=== PATIENT | female | born 1930 | race Caucasian/White ===

== ENCOUNTER → 2018-02-22 | Outpatient (CLI) | payer MEDICARE, BC ==
--- NOTE | 2018-02-22 14:49 | US ---
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 EXAM MEASUREMENTS: RIGHT: Peak Systolic Velocity (PSV) cm/sec ----- Right CCA: 56.6 ----- Right ICA: 55.5 ----- Right ECA: 62.1 ICA/CCA ratio: 1.0 RIGHT: End Diastole cm/sec ----- Right CCA: 8.6 ----- Right ICA: 9.9 ----- Right ECA: 0.0 LEFT: Peak Systolic Velocity (PSV) cm/sec ----- Left CCA: 57.2 ----- Left ICA: 70.6 ----- Left ECA: 59.5 ICA/CCA ratio: 1.2 LEFT: End Diastole cm/sec ----- Left CCA: 11.0 ----- Left ICA: 18.5 ----- Left ECA: 5.6 VERTEBRALS (direction of flow): Right Vertebral: Antegrade Left Vertebral: Antegrade Rhythm: Normal No significant velocity elevations, mild plaque. IMPRESSION: Mild degree of grayscale atheromatous plaquing with no sonographically evident hemodynam ically significant stenosis within either visualized carotid arterial system.
--- NOTE | 2018-02-23 09:18 | ECHOF ---
Referral Reason:I65.23 Occlusion and stenosis, carotid arteries MEASUREMENTS -------- HEIGHT: 162.6 cm WEIGHT: 65.8 kg BP: 199/84 RVIDd: 2.8 cm (< 3.3) IVSd: 1.0 cm (0.6 - 1.1) LVIDd: 4.2 cm (3.9 - 5.3) LVPWd: 1.1 cm (0.6 - 1.1) IVSs: 1.3 cm LVIDs: 2.8 cm LVPWs: 1.6 cm LA Diam: 3.3 cm (2.7 - 3.8) LAESV Index (A-L): 25.49 ml/m Ao Diam: 2.6 cm (2.0 - 3.7) AV Cusp: 1.7 cm (1.5 - 2.6) EPSS: 0.4 cm MV E George: 0.76 m/s MV DecT: 167 ms MV A George: 0.93 m/s MV E/A Ratio: 0.81 MV EF SLOPE: 87.19 mm/s (70 - 150) MV EXCURSION: 1.41 cm (> 18.000) FINDINGS -------- Sinus rhythm. This was a technically adequate study. The left ventricular size is normal. Left ventricular wall thickness is normal. Overall left vent ricular systolic function is normal with, an EF between 55 - 60 %. The right ventricle is normal in size. Normal LA size by volume 22+/-6 ml/m2. The right atrium is normal in size. There is mild aortic valve sclerosis. There is mild aortic regurgitation. The mitral valve leaflets are mildly thickened. Mild mitral annular calcification present. Mild m itral regurgitation is present. Trace tricuspid regurgitation present. Moderate pulmonic regurgitation. The aortic root size is normal. Normal inferior vena cava with normal inspiratory collapse consistent with estimated right atrial pre ssure of 5 mmHg. There is no pericardial effusion. CONCLUSIONS -------- 1. Sinus rhythm. 2. This was a technically adequate study. 3. The left ventricular size is normal. 4. Left ventricular wall thickness is normal. 5. Overall left ventricular systolic function is normal with, an EF between 55 - 60 %. 6. The right ventricle is normal in size. 7. Normal LA size by volume 22+/-6 ml/m2. 8. The right atrium is normal in size. 9. There is mild aortic valve sclerosis. 10. There is mild aortic regurgitation. 11. The mitral valve leaflets are mildly thickened. 12. Mild mitral annular calcification present. 13. Mild mitral regurgitation is present. 14. Trace tricuspid regurgitation present. 15. Moderate pulmonic regurgitation. 16. The aortic root size is normal. 17. Normal inferior vena cava with normal inspiratory collapse consistent with estimated right atrial pressure of 5 mmHg. 18. There is no pericardial effusion. OCCUPATIONAL MEDICINE PHYSICIAN: NORAH Sampson
== END | disposition home or self-care (01) ==
LOC: RADECHMAIN 12:54
PROVIDERS: ATTEND Internal Medicine
DX: I65.23 Occlusion and stenosis of bilateral carotid arteries (principal); I37.1 Nonrheumatic pulmonary valve insufficiency
CPT/HCPCS: 93306; 93880

== ENCOUNTER → 2019-01-09 | Outpatient (CLI) | payer MEDICARE, BC ==
--- NOTE | 2019-01-09 11:54 | CT ---
EXAMINATION TYPE: CT abdomen pelvis w con DATE OF EXAM: 01/09/2019 COMPARISON: none HISTORY: Weight loss CT DLP: 541 mGycm Automated exposure control for dose reduction was used. CONTRAST: CT scan of the abdomen pelvis is performed with IV Contrast, patient injected with 80 mL of Isovue 30 0. FINDINGS- LUNG BASES-pleural calcification and thickening noted and there is interstitial interlobular septal t hickening compatible chronic interstitial lung disease. Heart is large and there is coronary artery c alcification.. LIVER/GB- No gross abnormality is appreciated. PANCREAS- No gross abnormality is seen. SPLEEN- No gross abnormality is seen. ADRENALS- No gross abnormality is seen. KIDNEYS/BLADDER-bilateral parapelvic renal cysts. There is a 1.4 cm hypodense mid pole left renal les ion measuring 30 Hounsfield units which does not meet the criteria of simple cyst. This could be betina elated with ultrasound.. BOWEL- no bowel dilatation. Normal appendix. LYMPH NODES- No greater than 1cm abdominal or pelvic lymph nodes areappreciated. OSSEOUS STRUCTURES-hypertrophic and degenerative change of the spine.. OTHER- 1.3 cm adnexal soft tissue density may represent residual ovary or ovarian cyst. No free flui d. No free air. Uterus atrophic. Aorta is ectatic with irregular soft and calcified atherosclerotic c hanges. Calcified uterine fibroid involving the uterus. IMPRESSION- 1. Chronic interstitial lung disease involving the lung bases with cardiomegaly and dense coronary ar samuel calcification. 2. No definite acute intra-abdominal process. There is a indeterminate left renal lesion measuring 30 Hounsfield units which does not meet the criteria of a simple cyst. Ultrasound suggested. 3. There is a 1.3 cm left adnexal lesion which is somewhat atypical given the patient's demographics and in the abnormal finding in a postmenopausal female should be correlated with pelvic ultrasound.
== END | disposition home or self-care (01) ==
LOC: RADCTMAIN 08:58
PROVIDERS: ATTEND Internal Medicine
DX: N28.9 Disorder of kidney and ureter, unspecified (principal); N85.9 Noninflammatory disorder of uterus, unspecified
CPT/HCPCS: 74177; Q9967 ×2

== ENCOUNTER → 2019-01-20 | Outpatient (CLI) | payer MEDICARE, BC ==
--- NOTE | 2019-01-20 14:11 | US ---
EXAMINATION TYPE: US kidneys/renal and bladder DATE OF EXAM: 01/20/2019 COMPARISON: CT dated 01/09/2019 CLINICAL HISTORY: Q61.8 CYSTIC RENAL DISEASE. EXAM MEASUREMENTS: Right Kidney: 9.7 x 6.0 x 4.9 cm Left Kidney: 9.8 x 5.5 x 4.8 cm Post Void Residual Volume: 32.1 mL Right Kidney: multiple parapelvic cysts vs. less likely mild hydronephrosis with appearance of dilate d renal pelvis at 1.3cm A/P. Left Kidney: inferior pole cortical cyst = 1.8 x 1.6 x 1.4cm; possible multiple parapelvic cysts vs. less likely mild hydronephrosis Bladder: wnl Bilateral Jets seen: yes Normal Post Void Residual: yes There is bilateral mild cortical renal thinning indicative of underlying medical renal disease. Findi ngs are greater on the right than left. IMPRESSION: 1. Bilateral hydronephrosis is difficult to exclude on ultrasound however findings likely relate to t he numerous renal sinus cysts as seen on the prior CT of 01/09/2019 rather than hydronephrosis. 2. Benign-appearing left lower pole cortical renal cyst.
--- NOTE | 2019-01-20 14:14 | US ---
EXAMINATION TYPE: US pelvic complete DATE OF EXAM: 01/20/2019 COMPARISON: CT CLINICAL HISTORY: Q61.8 CYSTIC RENAL DISEASE; uterine fibroid and adnexal mass per CT TECHNIQUE: Transabdominal (TA). Transabdominal sonographic images of the pelvis were acquired. Date of LMP: NA EXAM MEASUREMENTS: Uterus: 6.0 x 4.2 x 2.9 cm Endometrial Stripe: 0.2 cm Right Ovary: 1.6 x 1.5 x 0.9 cm Left Ovary: 3.1 x 2.4 x 2.0 cm 1. Uterus: Anteverted; dystrophic calcification in right upper uterus likely relates to a degenerati ve uterine fibroid noted on the CT of 01/09/2019 measuring 1.4 x 1.8 x 1.3cm. 2. Endometrium: thickness is wnl post menopause 3. Right Ovary: wnl 4. Left Ovary: simple cyst noted = 2.3 x 1.5 x 1.8cm 5. Bilateral Adnexa: wnl 6. Posterior cul-de-sac: wnl IMPRESSION: 1. Intramural uterine dystrophic calcification likely on the basis of a degenerative uterine leiomyom a. 2. Simple appearing cyst measuring up to 2.3 cm on the left. For cysts of this size in a postmenopaus al female annual surveillance is recommended to confirm stability. Once 2 years of stability has been confirmed the patient/physician may opt to decrease the frequency of surveillance.
== END | disposition home or self-care (01) ==
LOC: RADUSWWP 12:49
PROVIDERS: ATTEND Internal Medicine
DX: N28.1 Cyst of kidney, acquired (principal); N85.8 Other specified noninflammatory disorders of uterus; N83.202 Unspecified ovarian cyst, left side
CPT/HCPCS: 76770; 76856

== ENCOUNTER 2019-08-19 07:03 | Inpatient (IN) | payer MEDICARE, BC ==
[2019-08-19] MEDS ORDERED: HEPARIN SODIUM,PORCINE 5,000 UNIT/ML 1 ML VIAL IV PRN (09:40)
[2019-08-19] MEDS: HEPARIN SOD,PORK IN 0.45% NACL 25,000 UNIT in 0.45% NACL 1 250ML.BAG IV SCH (09:45)
[2019-08-19] MEDS ORDERED: IV FLUID CONTINUATION 1,000 ML IV ONE (10:53)
[2019-08-19] MEDS ORDERED: LIDOCAINE 1% INJ 10MG/ML (20 ML MDV) ONE (11:06)
[2019-08-19] MEDS ORDERED: VERAPAMIL 2.5 MG/ML 2 ML AMP ONE (11:06)
[2019-08-19] MEDS ORDERED: MIDAZOLAM 2 MG/2 ML VIAL IV ONE (11:20)
[2019-08-19] MEDS ORDERED: LIDOCAINE 1% INJ 10MG/ML (20 ML MDV) SQ ONE (11:21)
[2019-08-19] MEDS ORDERED: TICAGRELOR 90 MG TAB ONE (11:31)
[2019-08-19] MEDS ORDERED: BIVALIRUDIN BOLUS 250 MG/50 ML IV ONE (11:36)
[2019-08-19] MEDS ORDERED: BIVALIRUDIN 250 MG in SODIUM CHLORIDE 0.9% 50 ML IV ONE (11:37)
[2019-08-19] MEDS ORDERED: TICAGRELOR 90 MG TAB PO ONE (11:40)
[2019-08-19] MEDS ORDERED: NITROGLYCERIN 1000MCG/10ML SYRINGE INTRACORON ONE (11:43)
[2019-08-19] MEDS ORDERED: niCARdipine Syringe (1,000 mcg/10 mL) INTRACORON ONE (11:43)
[2019-08-19] MEDS: NITROGLYCERIN 1000MCG/10ML SYRINGE INTRACORON ONE ×2 (11:47→11:52)
[2019-08-19] MEDS ORDERED: IOPAMIDOL-370 125ML BTL INJ ONE (12:06)
[2019-08-19] MEDS ORDERED: HEPARIN SODIUM 1,000 UN/ML (10ML VL) ONE (12:11)
[2019-08-19] MEDS ORDERED: MAG HYDROX/AL HYDROX/SIMETH 30 ML CUP PO PRN (12:35)
[2019-08-19] MEDS ORDERED: RX INFO: IV CONTRAST WAS GIVEN 1 EACH MISC MISCELLANE PRN (12:35)
[2019-08-19] MEDS ORDERED: ATROPINE SULFATE 0.1 MG/ML 10ML SYRINGE IV PRN (12:35)
[2019-08-19] MEDS ORDERED: ZOLPIDEM 5 MG TAB PO PRN (12:35)
[2019-08-19] MEDS ORDERED: NITROGLYCERIN SL TABS 0.4 MG TAB SUBLINGUAL PRN (12:35)
[2019-08-19] MEDS ORDERED: SODIUM CHLORIDE 0.9% 1,000 ML IV SCH (12:45)
--- NOTE | 2019-08-19 13:31 | CC ---
CARDIAC CATHETERIZATION REPORT DATE OF SERVICE: August 19, 2019. PERFORMING PHYSICIAN: Fransisco Hsu MD. PROCEDURE PERFORMED: 1. Selective right and left coronary angiogram. 2. Left heart catheterization. 3. Successful stenting of the proximal left anterior descending artery using 3.25 x 33 mm Xience JOHN with an excellent angiographic result and reduction of stenosis from 99% to 0%. 4. Successful stenting of the proximal right coronary artery using 3.0 x 18 mm Xience JOHN with an excellent angiographic result and reduction of stenosis from 80% to 0%. INDICATION: This is a pleasant 89-year-old female patient with hypertension and dyslipidemia who is in great physical shape for her age, presented to the [facility] with chest discomfort. The first set of troponin came into be unremarkable but subsequently the second set came in to be abnormal. The EKG showed nonspecific ST and T-wave abnormalities. Because of that and because she continues to have mild ongoing chest discomfort, I decided to pursue with a heart catheterization. APPROACH: Right common femoral artery. COMPLICATION: None. LEVEL OF SEDATION: Moderate with sedation length of 50 minutes. PROCEDURE DESCRIPTION: After obtaining informed consent, the patient was brought to the cardiac open hearth furnace laborer. The right common femoral artery was cannulated using micropuncture technique, the micropuncture wire passed easily then I placed a 6-Persian sheath 11 cm in the right groin. I did selective right and left coronary angiogram using JR4 and JL4 catheters. Left heart catheterization was performed using 6-Persian pigtail catheter. After that I did intervene on the LAD and RCA, please see a separate paragraph for that. SELECTIVE CORONARY ANGIOGRAM: 1. The right coronary artery is a large caliber vessel. It is a dominant vessel. The proximal to mid RCA appeared to have a lesion in the range of 80%. The RCA distally appeared to be normal and bifurcates into PDA and PLV branches, both appeared to be angiographically normal. 2. The left main is angiographically normal. It bifurcates into LCX and LAD. 3. The LCX is a large caliber vessel. It is a nondominant vessel. It is angiographically normal. In the midportion, it gives rise into OM1 which is a large caliber vessel and OM2 which is a small caliber vessel. They both appear to be angiographically normal. 4. The LAD is a large caliber vessel. The proximal LAD has a long tubular lesion up to about 99% by the bifurcation of the large septal skip hoist engineer branch. There was also sluggish flow in the LAD. The mid LAD and distal LAD appeared to be angiographically normal. HEMODYNAMICS: The LVEDP was 20 mmHg without significant gradient across the aortic valve. PCI OF THE LAD AND RCA: Anticoagulation was initiated using Angiomax. Subsequently I did engage the left main using JL3.5 guide. I did wire it using a long whisper J wire. The wire was advanced to the distal LAD. After that I did balloon angioplasty using 2.5 x 15 mm balloon before I deployed 3.25 x 33 mm Xience JOHN where the stent was positioned under fluoroscopy guidance and deployed under 12 atmospheres for 20 seconds. The following angiogram showed excellent angiographic results without any complication with JEN-3 flow in the LAD. For the right coronary artery, I did engage the right coronary artery using JR3.5 guide. I did wire it using the same whisper wire I used for the LAD. After that I did balloon angioplasty using the same 2.5 x 15 mm balloon before I deployed a 3.0 x 18 mm another Xience JOHN where the stent was positioned under fluoroscopy guidance and deployed under its nominal pressure. After that I did post dilate the stent using 3.25 noncompliant balloon. The final angiogram showed excellent angiographic results and the procedure was completed without any complication. CONCLUSION: 1. Acute [id number] myocardial infarction in this 89-year-old female patient with hypertension and dyslipidemia. 2. Critical disease involving the proximal left anterior descending artery with JEN-3 flow in the LAD. 3. Severe disease involving the proximal right coronary artery. 4. Successful stenting of both the LAD and RCA with an excellent angiographic results and without any complication with JEN-3 flow by the end. 5. Elevated left ventricular end-diastolic pressure. POSTPROCEDURE MANAGEMENT: 1. Dual antiplatelet therapy. 2. Risk factors modifications. 3. Obtain an echocardiogram with Doppler to establish LV function. 4. Start the patient on high intensity statin along with beta faustino along with Aldactone. 5. Follow up with the patient. MMODL / IJN: [id number] /
--- NOTE | 2019-08-19 13:37 | LTR ---
August 19, 2019 Re: Oralia Watts Dear Dr. Helms: Ms. Oralia Watts presented initially to [facility] with chest discomfort and ruled in for acute [id number] myocardial infarction. I did perform a heart catheterization on her and that revealed severe 2 vessels coronary artery disease involving the LAD and RCA. Ms. Watts underwent successful stenting of both arteries. I want to thank you for allowing us to participate in her care and please do not hesitate to call if you have any question or concern. Sincerely, MD CHRISTINA Sanchez / BELÉN: [id number] /
--- NOTE | 2019-08-19 17:41 | P.HPIM ---
History of Present Illness H&P Date: 08/19/19 Chief Complaint: Chest pain This is an 89-year-old female patient of Dr. Dr. Helms with past medical history of hypertension, hyperlipidemia, hypothyroidism, glaucoma, generalized osteoarthritis, patient initially presented to [facility] with chest pain midsternal to the left. She had elevated troponins and EKG showed nonspecific ST and T-wave abnormalities. Patient was ruled in for non-ST elevated myocardial infarction and transferred to [facility] directly to the heart cath and found to have critical disease involving the proximal LAD, severe disease in the proximal RCA and underwent successful stenting of both the LAD and RCA. Plan is for dual antiplatelet therapy, echocardiogram, statin and beta faustino and Aldactone. Patient has been admitted to the cardiac stepdown unit. She is currently chest pain-free. Review of Systems Constitutional: Denies chills, Denies fatigue, Denies fever, Denies poor appetite, Denies weakness Eyes: denies blurred vision, denies pain Ears, nose, mouth and throat: Denies headache, Denies sore throat Cardiovascular: Reports chest pain, Denies dyspnea on exertion, Denies leg edema, Denies shortness of breath, Denies syncope Respiratory: Denies cough, Denies cough with sputum, Denies dyspnea, Denies excessive sputum, Denies hemoptysis, Denies home oxygen, Denies respiratory infections Gastrointestinal: Denies abdominal pain, Denies diarrhea, Denies loss of appetite, Denies nausea, Denies vomiting Genitourinary: Denies dysuria, Denies hematuria, Denies urgency, Denies urinary frequency Musculoskeletal: Denies muscle weakness, Denies myalgias Integumentary: Denies pruritus, Denies rash, Denies wounds Neurological: Denies change in mentation, Denies change in speech, Denies numbness, Denies weakness Psychiatric: Denies anxiety, Denies depression Endocrine: Denies fatigue, Denies weight change Past Medical History Past Medical History: Eye Disorder, Hyperlipidemia, Hypertension, Osteoarthritis (OA), Thyroid Disorder Additional Past Medical History / Comment(s): "borderline glaucoma", TIA History of Any Multi-Drug Resistant Organisms: None Reported Past Surgical History: Back Surgery, Orthopedic Surgery, Tubal Ligation Additional Past Surgical History / Comment(s): HEMORRHOIDECTOMY, DARRELL CATARACT, PAIN CLINIC PROCEDURES, RIGHT 5TH TOE SX, SINUS SURGERY, colonoscopy last year was normal. Past Anesthesia/Blood Transfusion Reactions: No Reported Reaction Additional Past Anesthesia/Blood Transfusion Reaction / Comment(s): . Past Psychological History: No Psychological Hx Reported Smoking Status: Never smoker Past Alcohol Use History: None Reported Past Drug Use History: None Reported - Past Family History Father Family Medical History: [place]ocardial Infarction ([place]) Additional Family Medical History / Comment(s): Father at age 59 from a myocardial infarction and he was an alcoholic. Brother(s) Family Medical History: CVA/TIA, [place]ocardial Infarction ([place]) Additional Family Medical History / Comment(s): Patient had 3 brothers, one from alcoholism, other from [place]. Sister(s) Family Medical History: No Reported History Additional Family Medical History / Comment(s): Patient had 2 sisters one of them from old age at 92. Son(s) Family Medical History: No Reported History Additional Family Medical History / Comment(s): Patient has 2 sons with no major medical problems. Daughter(s) Family Medical History: No Reported History Additional Family Medical History / Comment(s): Patient has one daughter with no major medical problems. Mother Family Medical History: CVA/TIA, Hypertension Additional Family Medical History / Comment(s): Mother at age 82 from CVA. Medications and Allergies Home Medications Medication Instructions Recorded Confirmed Type amLODIPine [Norvasc] 7.5 mg PO HS 01/30/14 08/19/19 History Aspirin 325 mg PO HS 11/18/15 08/19/19 History Cetirizine HCl [Zyrtec] 10 mg PO HS 11/18/15 08/19/19 History Levothyroxine Sodium [Synthroid] 25 mcg PO DAILY #14 tab 11/27/15 08/19/19 Rx Timolol 0.5% Ophth Soln [Timoptic 1 drop LEFT EYE BID 01/07/16 08/19/19 History 0.5% Ophth Soln] HYDROcodone/APAP 5-325MG [[place] 1 tab PO Q4HR PRN #30 tab NS 01/10/16 08/19/19 Rx 5-325] Losartan [Cozaar] 25 mg PO DAILY 08/19/19 08/19/19 History Multivitamins, Thera [Multivitamin 1 tab PO DAILY 08/19/19 08/19/19 History (formulary)] Allergies Allergy/AdvReac Type Severity Reaction Status Date / Time atorvastatin AdvReac pain and Verified 08/19/19 10:48 hair loss Izypduy-Lci-Sqb Reductase AdvReac severe Verified 08/19/19 10:48 Inhibitor pain and hair loss Physical Exam Vitals: Vital Signs Temp Pulse Resp BP Pulse Ox 08/19/19 13:20 62 18 131/67 97 08/19/19 13:05 59 L 18 130/72 98 08/19/19 12:50 97.3 F L 61 18 127/61 99 08/19/19 09:01 97.3 F L 59 L 17 124/56 99 Intake and Output 08/18/19 08/19/19 08/19/19 22:59 06:59 14:59 Intake Total 376 Balance 376 Intake: IV 376 Other: Weight 62.8 kg - Constitutional General appearance: average body habitus, no acute distress - EENT Eyes: Reports anicteric sclerae, Reports disc margins sharp, Reports PERRLA, Reports fundus normal, Reports normal apperance, Denies ptosis, Denies scleral icterus ENT: Reports hard of hearing, Reports normal oropharynx, Denies thrush Ears: bilateral: normal - Neck Neck: Reports normal ROM, Denies lymphadenopathy, Denies rigidity, Denies stridor, Denies thyromegaly Carotids: bilateral: upstroke normal Thyroid: bilateral: normal size - Respiratory Respiratory: bilateral: diminished, negative: dullness, rales, rhonchi, wheezing, prolonged expiration, prolonged inspiration - Cardiovascular Rhythm: regular Heart sounds: normal: S1, S2 Abnormal Heart Sounds: Reports systolic murmur - Gastrointestinal General gastrointestinal: Reports normal bowel sounds, Reports soft, Reports splenomegaly, Denies tenderness, Denies umbilical hernia - Integumentary Integumentary: Denies cyanotic, Denies decreased turgor, Denies jaundiced, Denies rash - Neurologic Neurologic: CNII-XII intact - Psychiatric Psychiatric: Reports A&O x's 3, Reports appropriate affect Thrombosis Risk Factor Assmnt - Choose All That Apply Any of the Below Risk Factors Present?: Yes Other Risk Factors: Yes Each Risk Factor Represents 3 Points: Age 75 years or older Thrombosis Risk Factor Assessment Total Risk Factor Score: 3 Thrombosis Risk Factor Assessment Level: Moderate Risk Assessment and Plan Plan: 1. Acute non-ST elevated myocardial infarction status post heart catheterization and stenting of the proximal LAD and proximal RCA. Continue aspirin 81 mg daily, Lipitor 80 mg at bedtime, Lopressor 25 mg twice daily, [place] to 90 mg twice daily, Aldactone 25 mg daily 2. Hypertension and hypertensive cardiovascular disease. Continue lisinopril 2.5 mg daily, Lopressor 25 mg twice daily, Aldactone 25 mg daily. 3. ALLERGIC rhinitis. 4. Hypothyroidism. Continue Synthroid 25 g orally once every day. 5. Hyperlipidemia. Continue Lipitor. 6. Osteoarthritis, generalized. Clinically stable. 7. History of TIA. Resolved. Discharge plan: Home Patient admitted to the hospital for a minimum of 2 night stay. Impression and plan of care have been directed as dictated by the signing physician. Monica Greenwood nurse practitioner acting as scribe for signing physician.
[2019-08-19] MEDS: TICAGRELOR 90 MG TAB PO SCH (20:42)
[2019-08-19] MEDS: METOPROLOL TARTRATE 25 MG TAB PO SCH (20:42)
[2019-08-19] MEDS ORDERED: ATORVASTATIN 80 MG TAB PO SCH (21:00)
[2019-08-20 06:15] LABS: Basophils # (A) 0.1 k/uL (0-0.2); Basophils % (A) 1 %; Eosinophils # (A) 0.1 k/uL (0-0.7); Eosinophils % (A) 1 %; HCT 41.7 % (34.0-46.0); HGB 13.9 gm/dL (11.4-16.0); Lymphocytes # (A) 1.5 k/uL (1.0-4.8); Lymphocytes % (A) 14 %; MCH 29.4 pg (25.0-35.0); MCHC 33.3 g/dL (31.0-37.0); MCV 88.4 fL (80.0-100.0); Mean Platelet Volume 7.6; Monocytes # (A) 0.5 k/uL (0-1.0); Monocytes % (A) 5 %; Neutrophils # (A) 8.1 k/uL (1.3-7.7); Neutrophils % (A) 78 %; Platelet Count 259 k/uL (150-450); RBC 4.72 m/uL (3.80-5.40); RDW 13.2 % (11.5-15.5); WBC 10.5 k/uL (3.8-10.6)
[2019-08-20] MEDS: LEVOTHYROXINE 25 MCG TAB PO SCH (06:23)
[2019-08-20] MEDS ORDERED: CLOPIDOGREL 75 MG TAB PO STA (10:11)
--- NOTE | 2019-08-20 10:57 | P.PN ---
Subjective Progress Note Date: 08/20/19 Principal diagnosis: Chest pain Patient continued to be hemodynamic a stable overnight no major events reported by nursing staff patient's is alert awake and oriented denying chest pain shortness breath nausea vomiting dumping dizziness lightheadedness or blurry vision. Patient is tolerating diet and ambulating in the room when her own Objective - Vital Signs Vital signs: Vital Signs Temp 98.2 F 08/20/19 08:00 Pulse 74 08/20/19 08:00 Resp 20 08/20/19 08:00 BP 106/65 08/20/19 08:00 Pulse Ox 96 08/20/19 08:00 Intake & Output 08/19/19 08/20/19 08/20/19 18:59 06:59 18:59 Intake Total 376 1000 120 Balance 376 1000 120 Weight 62.8 kg 62.7 kg Intake: IV 376 Intake, IV Titration 1000 Amount Sodium Chloride 0.9% 1, 1000 000 ml @ 75 mls/hr IV . [id number] COLIN Rx#:[id number] Oral 120 Other: Voiding Method Toilet # Voids 1 1 - Exam Gen.: in stated age, no acute distress Heart: Normal S1-S2 Lungs: Clear to auscultation bilaterally Abdomen: Soft, no tenderness, positive bowel sounds in all 4 quadrant no guarding or rebound Skin: No new rash Psych: Alert and oriented 3 Neuro: No focal deficit - Labs CBC & Chem 7: 08/20/19 06:00 08/20/19 06:00 Labs: Abnormal Lab Results - Last 24 Hours (Table) 08/20/19 Range/Units 06:00 Neutrophils # 8.1 H (1.3-7.7) k/uL Assessment and Plan Assessment: 1. Non-ST elevation MN status post cardiac catheterization with drug-eluting stent to the LAD. 2. Hypertension. 3. Hyperlipidemia. 4. Hypothyroidism. 5. Osteoarthritis. Plan discussed with cardiology to continue monitoring the patient's over the next 24 hours continue evidence-based medicine and continue monitoring vital signs closely would consider discharge in the morning based on clinical progress
--- NOTE | 2019-08-20 11:21 | P.PN ---
Subjective Progress Note Date: 08/20/19 This is an 89-year-old female patient of Dr. Dr. Helms with past medical history of hypertension, hyperlipidemia, hypothyroidism, glaucoma, generalized osteoarthritis, patient initially presented to [facility] with chest pain midsternal to the left. She had elevated troponins and EKG showed nonspecific ST and T-wave abnormalities. Patient was ruled in for non-ST elevated myocardial infarction and transferred to [facility] directly to the heart cath and found to have critical disease involving the proximal LAD, severe disease in the proximal RCA and underwent successful stenting of both the LAD and RCA. Plan is for dual antiplatelet therapy, echocardiogram, statin and beta faustino and Aldactone. Patient has been admitted to the cardiac stepdown unit. She is currently chest pain-free. 08/20: Patient denies having any chest pain or shortness of breath today. She denies any lightheadedness or dizziness. Patient verbalizes that she is unable to afford Brilinta and because her is on Plavix and she knows that they can afford Plavix, she would like to be switched. Regarding statins, patient states that she has been on 2 previous statins and was unable to tolerate due to severe leg pain and she will not take iany statins. Hemoglobin 13.9, platelet count 259. Patient is agreeable to be monitored overnight and plan for discharge tomorrow. Physical exam: Gen: This is an 89-year-old female. Patient is resting in bed and appears to be comfortable and in no acute distress. Patient's is at the bedside. VS: Afebrile, heart rate 74, blood pressure 106/65, pulse ox 96% on room air HEENT: Head is atraumatic, normocephalic. Pupils equal, round. Sclerae is anicteric. NECK: Supple. No JVD. No lymphadenopathy. No thyromegaly. LUNGS: Clear to auscultation. No wheezes or rhonchi. No intercostal retractions. HEART: Regular rate and rhythm. Systolic murmur. ABDOMEN: Soft. Bowel sounds are present. No masses. No tenderness. EXTREMITIES: No pedal edema. No calf tenderness. NEUROLOGICAL: Patient is awake, alert and oriented x3. Cranial nerves 2 through 12 are grossly intact. Assessment: 1. Acute non-ST elevated myocardial infarction status post heart catheterization and stenting of the proximal LAD and proximal RCA. 2. Hypertension and hypertensive cardiovascular disease. 3. Hyperlipidemia 4. Hypothyroidism. Plan: Discontinue Brilinta and start Plavix with a loading dose of 600 mg today followed by 75 mg starting tomorrow Patient is intolerant of statins Continue aspirin 81 mg daily, Lopressor 25 mg twice daily, lisinopril 2.5 mg daily, Aldactone 25 mg daily Monitor patient overnight, increase activity Plan for discharge home tomorrow Further recommendations to follow based upon clinical course Nurse practitioner note has been reviewed, I agree with documented findings and plan of care. Patient was seen and examined. Objective - Vital Signs Vital signs: Vital Signs Temp 98.2 F 08/20/19 08:00 Pulse 74 08/20/19 08:00 Resp 20 08/20/19 08:00 BP 106/65 08/20/19 08:00 Pulse Ox 96 08/20/19 08:00 Intake & Output 08/19/19 08/20/19 08/20/19 18:59 06:59 18:59 Intake Total 376 1000 120 Balance 376 1000 120 Weight 62.8 kg 62.7 kg Intake: IV 376 Intake, IV Titration 1000 Amount Sodium Chloride 0.9% 1, 1000 000 ml @ 75 mls/hr IV . [id number] COLIN Rx#:[id number] Oral 120 Other: Voiding Method Toilet # Voids 1 1 - Labs CBC & Chem 7: 08/20/19 06:00 08/20/19 06:00 Labs: Abnormal Lab Results - Last 24 Hours (Table) 08/20/19 Range/Units 06:00 Neutrophils # 8.1 H (1.3-7.7) k/uL
[2019-08-20] MEDS: LISINOPRIL 2.5 MG TAB PO SCH (11:34)
[2019-08-20] MEDS: SPIRONOLACTONE 25 MG TAB PO SCH (11:34)
[2019-08-20] MEDS: METOPROLOL TARTRATE 25 MG TAB PO SCH ×2 (11:34→20:17)
[2019-08-20] MEDS: HEPARIN SOD,PORK IN 0.45% NACL 25,000 UNIT in 0.45% NACL 1 250ML.BAG IV SCH (11:35)
[2019-08-20] MEDS: ASPIRIN 81 MG PO SCH (11:35)
[2019-08-20] MEDS: TICAGRELOR 90 MG TAB PO SCH (11:38)
[2019-08-20 12:37] VITALS: BMI 23.7
--- NOTE | 2019-08-20 16:44 | ECHOF ---
Referral Reason:NSTEMI MEASUREMENTS -------- HEIGHT: 162.6 cm WEIGHT: 62.6 kg BP: RVIDd: 3.5 cm (< 3.3) IVSd: 1.2 cm (0.6 - 1.1) LVIDd: 4.3 cm (3.9 - 5.3) LVPWd: 0.9 cm (0.6 - 1.1) IVSs: 1.3 cm LVIDs: 3.0 cm LVPWs: 1.2 cm LA Diam: 3.7 cm (2.7 - 3.8) LAESV Index (A-L): 29.00 ml/m MV EXCURSION: 23.948 mm (> 18.000) MV EF SLOPE: 148 mm/s (70 - 150) EPSS: 0.2 cm MV E George: 0.57 m/s MV DecT: 101 ms MV A George: 0.63 m/s MV E/A Ratio: 0.91 RAP: 5.00 mmHg RVSP: 20.82 mmHg FINDINGS -------- Sinus rhythm. This was a techncally difficult study with suboptimal views, , Lumason utilized for enhancement of im ages. The left ventricular size is normal. Left ventricular wall thickness is normal. There is moderate global hypokinesis of LV . Overall left ventricular systolic function is moderate-severely impaire d with, an EF between 30 - 35 %. Apical septum LV wall motion is hypokinetic. Anterseptal Hypoki nesis Inferior Hypokinesis Septal Hypokinesis Anterior Hypokinesis The right ventricle is normal in size. The left atrium is mildly dilated. LA is midly dilated 29-33ml/m2. The right atrial size is normal. 5.0mg OF Lumason UTLIZED: 2 OR MORE WALL SEGMENTS NOT VISUALIZED. There is mild aortic valve sclerosis. There is no evidence of aortic regurgitation. Mild mitral annular calcification present. [id number] mitral regurgitation is present. Mild tricuspid regurgitation present. Right ventricular systolic pressure is normal at < 35 mmHg. There is no evidence of pulmonary hypertension. There is no pulmonic regurgitation present. The aortic root size is normal. There is no pericardial effusion. CONCLUSIONS -------- 1. Sinus rhythm. 2. This was a techncally difficult study with suboptimal views, , Lumason utilized for enhancement of images. 3. The left ventricular size is normal. 4. Left ventricular wall thickness is normal. 5. There is moderate global hypokinesis of LV . 6. Overall left ventricular systolic function is moderate-severely impaired with, an EF between 30 - 35 %. 7. Apical septum LV wall motion is hypokinetic. 8. Anterseptal Hypokinesis 9. Inferior Hypokinesis 10. Septal Hypokinesis 11. Anterior Hypokinesis 12. The right ventricle is normal in size. 13. The left atrium is mildly dilated. 14. LA is midly dilated 29-33ml/m2. 15. The right atrial size is normal. 16. 5.0mg OF Lumason UTLIZED: 2 OR MORE WALL SEGMENTS NOT VISUALIZED. 17. There is mild aortic valve sclerosis. 18. Mild mitral annular calcification present. 19. Ewfz-qy-bgsfhgis mitral regurgitation is present. 20. Mild tricuspid regurgitation present. 21. Right ventricular systolic pressure is normal at < 35 mmHg. 22. There is no evidence of pulmonary hypertension. 23. There is no pulmonic regurgitation present. 24. The aortic root size is normal. 25. There is no pericardial effusion. WRAPPER CASER: Yvonne Mcghee RDCS
[2019-08-21 05:59] LABS: Basophils % (A) 1 %; Eosinophils # (A) 0.1 k/uL (0-0.7); Eosinophils % (A) 1 %; HGB 13.4 gm/dL (11.4-16.0); Lymphocytes # (A) 1.9 k/uL (1.0-4.8); Lymphocytes % (A) 21 %; MCH 28.5 pg (25.0-35.0); MCV 89.1 fL (80.0-100.0); Mean Platelet Volume 7.5; Monocytes # (A) 0.6 k/uL (0-1.0); Monocytes % (A) 7 %; Neutrophils % (A) 68 %; Platelet Count 231 k/uL (150-450); RBC 4.71 m/uL (3.80-5.40); RDW 13.6 % (11.5-15.5); WBC 8.9 k/uL (3.8-10.6)
[2019-08-21] MEDS: LEVOTHYROXINE 25 MCG TAB PO SCH (06:50)
[2019-08-21] MEDS: ASPIRIN 81 MG PO SCH (08:34)
[2019-08-21] MEDS: SPIRONOLACTONE 25 MG TAB PO SCH (08:34)
[2019-08-21] MEDS: METOPROLOL TARTRATE 25 MG TAB PO SCH (08:34)
[2019-08-21] MEDS: LISINOPRIL 2.5 MG TAB PO SCH (08:34)
[2019-08-21] MEDS ORDERED: CLOPIDOGREL 75 MG TAB PO SCH (09:00)
[2019-08-21] MEDS ORDERED: EZETIMIBE 10 MG TAB PO SCH (09:15)
[2019-08-21 09:17] VITALS: RESP 18; TEMP 98
--- NOTE | 2019-08-21 11:34 | P.PN ---
Subjective Progress Note Date: 08/21/19 This is an 89-year-old female patient of Dr. Dr. Helms with past medical history of hypertension, hyperlipidemia, hypothyroidism, glaucoma, generalized osteoarthritis, patient initially presented to [facility] with chest pain midsternal to the left. She had elevated troponins and EKG showed nonspecific ST and T-wave abnormalities. Patient was ruled in for non-ST elevated myocardial infarction and transferred to [facility] directly to the heart cath and found to have critical disease involving the proximal LAD, severe disease in the proximal RCA and underwent successful stenting of both the LAD and RCA. An echocardiogram with Doppler study was performed which revealed an ejection fraction of 30-35%. Blood pressure this morning 104/50 with a heart rate in the 60s, 97% on room air. White blood cell count 8.9, hemoglobin 13.4, platelet count 231. Patient is currently on aspirin 81 mg daily, Lipitor 80 mg daily, Plavix 75 mg daily, we will add study at 10 mg daily to her medication regime as she is intolerant to statins. She is on lisinopril 2-1/2 mg daily as well as metoprolol 25 mg by mouth twice a day and Aldactone 25 mg daily. Patient denies any chest discomfort and her breathing is stable. She's been up ambulating in the hallway without any difficulty. Objective - Vital Signs Vital signs: Vital Signs Temp 98 F 08/21/19 08:00 Pulse 67 08/21/19 08:00 Resp 18 08/21/19 08:00 BP 104/52 08/21/19 08:00 Pulse Ox 97 08/21/19 08:00 Intake & Output 08/20/19 08/21/19 08/21/19 18:59 06:59 18:59 Intake Total 342 240 Balance 342 240 Weight 62.7 kg 62.8 kg Intake: Oral 342 240 Other: Voiding Method Toilet # Voids 2 1 - Exam HEENT: Head is atraumatic, normocephalic. Pupils equal, round. Sclerae is anicteric. NECK: Supple. No JVD. No lymphadenopathy. No thyromegaly. LUNGS: Clear to auscultation. No wheezes or rhonchi. No intercostal retractions. HEART: Regular rate and rhythm. Systolic murmur. ABDOMEN: Soft. Bowel sounds are present. No masses. No tenderness. EXTREMITIES: No pedal edema. No calf tenderness. NEUROLOGICAL: Patient is awake, alert and oriented x3. Cranial nerves 2 through 12 are grossly intact. - Labs CBC & Chem 7: 08/21/19 05:23 08/20/19 06:00 Assessment and Plan Plan: Assessment and plan 1. Acute non-ST elevated myocardial infarction status post heart cat heterization and stenting of the proximal LAD and proximal RCA. 2. Hypertension and hypertensive cardiovascular disease. 3. Hyperlipidemia 4. Hypothyroidism. 5. 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 Plan From cardiology's perspective, patient may be able to be discharged home today. We'll make her a follow-up appointment to see Dr. Hardin in the office post discharge. We will add study at 10 mg daily to her medication regime. DNP note has been reviewed, I agree with a documented findings and plan of care. Patient was seen and examined.
[2019-08-21 11:47] VITALS: BP 105/50; PULSE 52
--- NOTE | 2019-08-21 16:30 | P.DS ---
Providers Date of admission: 08/19/19 08:51 Attending physician: Jerson Smyth Consults: 08/19/19 09:44 Consult Physician Routine Consulting Provider: Fransisco Hsu Consult Reason/Comments: tx from [facility] for heart cath Do you want consulting provider notified?: Already Contacted Placement Type Exists?: Yes 08/19/19 12:35 Consult Physician Routine Consulting Provider: [facility] Consult Reason/Comments: Post Interventional patient Do you want consulting provider notified?: Already Contacted Primary care physician: Radha Helms [facility] Course: This is an 89-year-old female patient of Dr. Dr. Helms with past medical history of hypertension, hyperlipidemia, hypothyroidism, glaucoma, generalized osteoarthritis, patient initially presented to [facility] with chest pain midsternal to the left. She had elevated troponins and EKG showed nonspecific ST and T-wave abnormalities. Patient was ruled in for non-ST elevated myocardial infarction and transferred to [facility] directly to the heart cath and found to have critical disease involving the proximal LAD, severe disease in the proximal RCA and underwent successful stenting of both the LAD and RCA. Plan is for dual antiplatelet therapy, echocardiogram, statin and beta faustino and Aldactone. Patient has been admitted to the cardiac stepdown unit. She is currently chest pain-free. patient examined bedside is chest pain-free. Denies any shortness of breath palpitations nausea vomiting or GERD. Patient will be discharged today with new medication including metoprolol Lipitor Plavix and Aldactone with follow-up for Dr. Helms as outpatient - Constitutional General appearance: cooperative, no acute distress, obese - Respiratory Respiratory: bilateral: CTA, negative: diminished, dullness, rales, rhonchi - Cardiovascular Rhythm: regular Heart sounds: normal: S1, S2 Abnormal Heart Sounds: no systolic murmur, no diastolic murmur, no rub, no S3 Gallop, no S4 Gallop, no click, no other - Gastrointestinal General gastrointestinal: normal bowel sounds, soft - Musculoskeletal Musculoskeletal: gait normal, strength equal bilaterally Review of Systems Constitutional: Denies chills, Denies fatigue, Denies fever, Denies poor appetite, Denies weakness Eyes: denies blurred vision, denies pain Ears, nose, mouth and throat: Denies headache, Denies sore throat Cardiovascular: Reports chest pain, Denies dyspnea on exertion, Denies leg edema, Denies shortness of breath, Denies syncope Respiratory: Denies cough, Denies cough with sputum, Denies dyspnea, Denies excessive sputum, Denies hemoptysis, Denies home oxygen, Denies respiratory infections Gastrointestinal: Denies abdominal pain, Denies diarrhea, Denies loss of appetite, Denies nausea, Denies vomiting Genitourinary: Denies dysuria, Denies hematuria, Denies urgency, Denies urinary frequency Musculoskeletal: Denies muscle weakness, Denies myalgias Integumentary: Denies pruritus, Denies rash, Denies wounds Neurological: Denies change in mentation, Denies change in speech, Denies numbness, Denies weakness Psychiatric: Denies anxiety, Denies depression Endocrine: Denies fatigue, Denies weight change Discharge diagnoses 1. Non-ST elevation MS status post cardiac catheterization with drug-eluting stent to the LAD and RCA . 2. Hypertension. 3. Hyperlipidemia. 4. Hypothyroidism. 5. Osteoarthritis. Disposition home with home care Plan - Discharge Summary Discharge Rx Participant: No New Discharge Prescriptions: New Spironolactone [Aldactone] 25 mg PO DAILY #30 tab Aspirin 81 mg PO DAILY #30 chew Atorvastatin [Lipitor] 80 mg PO HS #30 tab Metoprolol Tartrate [Lopressor] 25 mg PO BID #60 tab Nitroglycerin Sl Tabs [Nitrostat] 0.4 mg SUBLINGUAL Q5M PRN #25 tab PRN Reason: Chest Pain Clopidogrel [Plavix] 75 mg PO DAILY #30 tab Lisinopril [Zestril] 2.5 mg PO DAILY #30 tab Ezetimibe [Zetia] 10 mg PO DAILY #30 tab Continue Levothyroxine Sodium [Synthroid] 25 mcg PO DAILY #14 tab Timolol 0.5% Ophth Soln [Timoptic 0.5% Ophth Soln] 1 drop LEFT EYE BID Discontinued amLODIPine [Norvasc] 7.5 mg PO HS Aspirin 325 mg PO HS Losartan [Cozaar] 25 mg PO DAILY No Action Cetirizine HCl [Zyrtec] 10 mg PO HS HYDROcodone/APAP 5-325MG [[place] 5-325] 1 tab PO Q4HR PRN #30 tab NS PRN Reason: Pain Multivitamins, Thera [Multivitamin (formulary)] 1 tab PO DAILY Discharge Medication List Cetirizine HCl [Zyrtec] 10 mg PO HS 11/18/15 [History] Levothyroxine Sodium [Synthroid] 25 mcg PO DAILY #14 tab 11/27/15 [Rx] Timolol 0.5% Ophth Soln [Timoptic 0.5% Ophth Soln] 1 drop LEFT EYE BID 01/07/16 [History] HYDROcodone/APAP 5-325MG [[place] 5-325] 1 tab PO Q4HR PRN #30 tab NS 01/10/16 [Rx] Multivitamins, Thera [Multivitamin (formulary)] 1 tab PO DAILY 08/19/19 [History] Aspirin 81 mg PO DAILY #30 chew 08/21/19 [Rx] Atorvastatin [Lipitor] 80 mg PO HS #30 tab 08/21/19 [Rx] Clopidogrel [Plavix] 75 mg PO DAILY #30 tab 08/21/19 [Rx] Ezetimibe [Zetia] 10 mg PO DAILY #30 tab 08/21/19 [Rx] Lisinopril [Zestril] 2.5 mg PO DAILY #30 tab 08/21/19 [Rx] Metoprolol Tartrate [Lopressor] 25 mg PO BID #60 tab 08/21/19 [Rx] Nitroglycerin Sl Tabs [Nitrostat] 0.4 mg SUBLINGUAL Q5M PRN #25 tab 08/21/19 [Rx] Spironolactone [Aldactone] 25 mg PO DAILY #30 tab 08/21/19 [Rx] Follow up Appointment(s)/Referral(s): Radha Helms MD [Primary Care Provider] - 1 Week (Please call the office to schedule your appointment) Fransisco Hsu MD [STAFF PHYSICIAN] - 08/28/19 3:30 pm (Wednesday -bring in all ID and a list of your medications) Patient Instructions/Handouts: *Surgery [facility] - After Heart Catheterization - Pony Roll Finisher Instructions Activity/Diet/Wound Care/Special Instructions: CARDIAC CATH 1. Support your puncture site by applying firm, steady pressure whenever you cough, laugh, sneeze or bear down to have a bowel movement (2-day restriction). 2. Watch for any excessive bruising, active bleeding, a firm knot forming under your skin, extreme tenderness and signs of infection (redness, swelling, fever). 3. Shower daily, do not soak puncture in a tub bath, jacuzzi, pool, small etc. for 1 week. This is to prevent risk of infection. 4. Drink plenty of fluids the day of and day after your procedure to flush contrast dye out of your kidneys. 5. Take all medications as directed. Never stop any new medication without your physicians OK. 6. No driving for 2 days after procedure. 7. 10- pound weight lifting restriction for 1 week. 8. Low sodium/low fat diet. 9. Activity limited until follow up appointment with your special projects coordinator. In case of any problems, please call [facility] [place] @ [phone]. Discharge Disposition: HOME WITH HOME HEALTH SERVICES
== END 2019-08-21 14:07 | disposition home or self-care (01) | DRG 247 ==
LOC: 3SCARD 08:51
PROVIDERS: ADMIT Internal Medicine; ATTEND Internal Medicine
PROC: 4A023N7 Measurement of Cardiac Sampling and Pressure, Left Heart, Percutaneous Approach (ICD-10-PCS; principal; 2019-08-19 10:45)
PROC: 027135Z Dilation of Coronary Artery, Two Arteries with Two Drug-eluting Intraluminal Devices, Percutaneous Approach (ICD-10-PCS; principal; 2019-08-19 10:45)
DX: I21.4 Non-ST elevation (NSTEMI) myocardial infarction (principal); E03.9 Hypothyroidism, unspecified; E78.5 Hyperlipidemia, unspecified; I11.9 Hypertensive heart disease without heart failure; M19.90 Unspecified osteoarthritis, unspecified site; I25.5 Ischemic cardiomyopathy; J30.9 Allergic rhinitis, unspecified; Z79.890 Hormone replacement therapy; Z79.82 Long term (current) use of aspirin; Z82.3 Family history of stroke; Z82.49 Family history of ischemic heart disease and other diseases of the circulatory system; Z86.73 Personal history of transient ischemic attack (TIA), and cerebral infarction without residual deficits; Z79.899 Other long term (current) drug therapy; Z79.02 Long term (current) use of antithrombotics/antiplatelets; Z98.51 Tubal ligation status; Z98.42 Cataract extraction status, left eye; Z98.41 Cataract extraction status, right eye; Z98.890 Other specified postprocedural states; Z88.8 Allergy status to other drugs, medicaments and biological substances
CPT/HCPCS: 82565; 85025; 93306; 93458; C1874

== ENCOUNTER 2019-08-30 02:16 | Inpatient (IN) | payer MEDICARE, BC ==
[2019-08-30] MEDS ORDERED: NITROGLYCERIN SL TABS 0.4 MG TAB SUBLINGUAL STA (02:38)
[2019-08-30] MEDS ORDERED: MORPHINE SULFATE 4 MG/ML SYRINGE IV STA (02:38)
[2019-08-30] MEDS ORDERED: ONDANSETRON 4 MG/2 ML VIAL IVP STA (02:38)
[2019-08-30] MEDS ORDERED: ASPIRIN 81 MG PO STA (02:38)
[2019-08-30] MEDS ORDERED: SODIUM CHLORIDE 0.9% 1,000 ML IV STA (02:38)
--- NOTE | 2019-08-30 02:50 | ED ---
Chest Pain HPI - General Chief Complaint: Chest Pain Stated Complaint: Chest Pain Time Seen by Provider: 08/30/19 02:35 Source: patient, family Mode of arrival: wheelchair Limitations: no limitations - History of Present Illness Initial Comments: Oralia is an 89yo known history of coronary artery disease who underwent cardiac catheterization and stenting on August 19 and had stenting of the proximal LAD and proximal RCA. Patient was discharged home on Plavix and aspirin. Patient reports she's been compliant with her medication she is followed up in Dr. Hsu's office. Patient reports that around midnight she began experiencing pressure-like chest pain, she took aspirin and nitro which time she became lightheaded and diaphoretic. She then notified her family decided to call 911, she was evaluated by EMS but refused transport however her son arrived at the home and forced her to come the hospital for further evaluation. Upon arrival she reports she still having some pressure in her chest with associated nausea. - Related Data Home Medications Medication Instructions Recorded Confirmed Cetirizine HCl [Zyrtec] 10 mg PO HS 11/18/15 08/19/19 Timolol 0.5% Ophth Soln [Timoptic 1 drop LEFT EYE BID 01/07/16 08/19/19 0.5% Ophth Soln] Multivitamins, Thera [Multivitamin 1 tab PO DAILY 08/19/19 08/19/19 (formulary)] Previous Rx's Medication Instructions Recorded Levothyroxine Sodium [Synthroid] 25 mcg PO DAILY #14 tab 11/27/15 HYDROcodone/APAP 5-325MG [[place] 1 tab PO Q4HR PRN #30 tab NS 01/10/16 5-325] Aspirin 81 mg PO DAILY #30 chew 08/21/19 Atorvastatin [Lipitor] 80 mg PO HS #30 tab 08/21/19 Clopidogrel [Plavix] 75 mg PO DAILY #30 tab 08/21/19 Ezetimibe [Zetia] 10 mg PO DAILY #30 tab 08/21/19 Lisinopril [Zestril] 2.5 mg PO DAILY #30 tab 08/21/19 Metoprolol Tartrate [Lopressor] 25 mg PO BID #60 tab 08/21/19 Nitroglycerin Sl Tabs [Nitrostat] 0.4 mg SUBLINGUAL Q5M PRN #25 tab 08/21/19 Spironolactone [Aldactone] 25 mg PO DAILY #30 tab 08/21/19 Allergies Allergy/AdvReac Type Severity Reaction Status Date / Time atorvastatin AdvReac pain and Verified 08/30/19 02:26 hair loss Hvlkqpy-Jzk-Mol Reductase AdvReac severe Verified 08/30/19 02:26 Inhibitor pain and hair loss Review of Systems ROS Statement: Those systems with pertinent positive or pertinent negative responses have been documented in the HPI. ROS Other: All systems not noted in ROS Statement are negative. EKG Findings - EKG Comments: EKG Findings:: KG was obtained due to complaint of chest pain, EKG was obtained at 2:31 AM, rate is 64 rhythm is sinus with rightward axis, CA is 184, care is made 4, QTC is 462 there are no acute ST elevations but deep T-wave inversions in the anterior lateral leads concerning for ischemia. When compared to EKG obtained on August 19 this is significant worsening. Past Medical History Past Medical History: Coronary Artery Disease (CAD), Chest Pain / Angina, Eye Disorder, Hyperlipidemia, Hypertension, Myocardial Infarction (CT), Osteoarthritis (OA), Thyroid Disorder Additional Past Medical History / Comment(s): "borderline glaucoma", TIA History of Any Multi-Drug Resistant Organisms: None Reported Past Surgical History: Back Surgery, Heart Catheterization With Stent, Orthopedic Surgery, Tubal Ligation Additional Past Surgical History / Comment(s): HEMORRHOIDECTOMY, DARRELL CATARACT, PAIN CLINIC PROCEDURES, RIGHT 5TH TOE SX, SINUS SURGERY, colonoscopy last year was normal. heart cath with 2 stents 08/18/19 Past Anesthesia/Blood Transfusion Reactions: No Reported Reaction Additional Past Anesthesia/Blood Transfusion Reaction / Comment(s): . Past Psychological History: No Psychological Hx Reported Smoking Status: Never smoker Past Alcohol Use History: None Reported Past Drug Use History: None Reported - Past Family History Father Family Medical History: Myocardial Infarction (CT) Additional Family Medical History / Comment(s): Father at age 59 from a myocardial infarction and he was an alcoholic. Brother(s) Family Medical History: CVA/TIA, Myocardial Infarction (CT) Additional Family Medical History / Comment(s): Patient had 3 brothers, one from alcoholism, other from [place]. Sister(s) Family Medical History: No Reported History Additional Family Medical History / Comment(s): Patient had 2 sisters one of them from old age at 92. Son(s) Family Medical History: No Reported History Additional Family Medical History / Comment(s): Patient has 2 sons with no major medical problems. Daughter(s) Family Medical History: No Reported History Additional Family Medical History / Comment(s): Patient has one daughter with no major medical problems. Mother Family Medical History: CVA/TIA, Hypertension Additional Family Medical History / Comment(s): Mother at age 82 from CVA. General Exam - General Exam Comments Initial Comments: Physical Exam GENERAL: Patient is well-developed and well-nourished. Patient is nontoxic and well- hydrated and is in no distress. HENT: Normocephalic, Atraumatic. EYES: PERRL, EOMI PULMONARY: Unlabored respirations. No audible rales rhonchi or wheezing was noted. CARDIOVASCULAR: There is a regular rate and rhythm without any murmurs gallops or rubs. ABDOMEN: Soft and nontender with normal bowel sounds. SKIN: Skin is clear with no lesions or rashes and otherwise unremarkable. : Deferred NEUROLOGIC: Patient is alert and oriented x3. Moving all extremities spontaneously MUSCULOSKELETAL: Normal extremities with adequate strength and full range of motion. No lower extremity swelling or edema. No calf tenderness. PSYCHIATRIC: Normal psychiatric evaluation. Limitations: no limitations Course Vital Signs 08/30/19 08/30/19 08/30/19 02:22 03:00 03:31 Temperature 97.9 F Pulse Rate 61 68 63 Respiratory 18 16 16 Rate Blood Pressure 151/74 158/76 156/72 O2 Sat by Pulse 98 98 100 Oximetry 08/30/19 08/30/19 03:45 04:07 Temperature Pulse Rate 62 Respiratory 16 Rate Blood Pressure 149/69 145/78 O2 Sat by Pulse 100 Oximetry Chest Pain MDM - MDM EKG was brought to me by triage, EKG concerning for ischemia so the patient was immediately brought back to resuscitation next line upon evaluation patient has mild chest pressure with associated nausea, she's taken nitro at home with only minimal improvement in her symptoms For cardiac workup was initiated Patient care was discussed with Dr. 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 Upon reevaluation patient reports pressure in her chest is resolved after Nitropaste. She continues to decline heparin. Labs were obtained, initial troponin was not elevated. We will plan to admit the patient for unstable angina on heparin drip with cardiology on consult. Dr. Mora was updated on plan and agreeable. Care was discussed with the admitting physician Dr. Scott who agrees with plan for admission, heparin and consult cardiology. Critical Care Time Critical Care Time: Yes Total Critical Care Time: 30 Critical Care Time: Critical Care Time Critical care time was exclusive of separately billable procedures and treating other patients and teaching time. Critical care was necessary to treat or prevent imminent or life-threatening deterioration. Given the critical condition in which the patient arrived, the patient was immediately assessed by myself and the nurse, and cardiac monitoring initiated due to the potential for rapid decompensation of the patient's clinical condition. During the course of the patients stay, I spent a considerable amount of time at the bedside performing serial re-evaluations of the patient's hemodynamic and clinical status because of the recognized potential threat to life or limb in this condition. I then had a chance to review not only all of the available current laboratory and radiographic studies obtained today, but I also reviewed old records available to me at the time. Additionally, any ancillary information available including sensory scientist records were reviewed. Sequential vital signs were obtained. Disposition Clinical Impression: Chest pain, Acute electrocardiogram changes Disposition: ADMITTED IP TO THIS HOSP Condition: Stable
[2019-08-30] MEDS ORDERED: HEPARIN SODIUM,PORCINE 5,000 UNIT/ML 1 ML VIAL IV PRN (02:51)
[2019-08-30] MEDS ORDERED: HEPARIN SODIUM,PORCINE 5,000 UNIT/ML 1 ML VIAL IV ONE (02:51)
[2019-08-30] MEDS ORDERED: NITROGLYCERIN OINT 1 INCH/GM PACKET TOPICAL STA (02:53)
[2019-08-30 02:56] LABS: Basophils # (A) 0.1 k/uL (0-0.2); Basophils % (A) 1 %; Eosinophils # (A) 0.4 k/uL (0-0.7); Eosinophils % (A) 3 %; HCT 47.4 % (34.0-46.0); HGB 15.1 gm/dL (11.4-16.0); Lymphocytes # (A) 2.7 k/uL (1.0-4.8); Lymphocytes % (A) 20 %; MCH 28.2 pg (25.0-35.0); MCHC 31.9 g/dL (31.0-37.0); MCV 88.5 fL (80.0-100.0); Mean Platelet Volume 7.6; Monocytes # (A) 0.6 k/uL (0-1.0); Monocytes % (A) 4 %; Neutrophils # (A) 9.3 k/uL (1.3-7.7); Neutrophils % (A) 70 %; Platelet Count 342 k/uL (150-450); RBC 5.35 m/uL (3.80-5.40); RDW 13.5 % (11.5-15.5); WBC 13.3 k/uL (3.8-10.6)
[2019-08-30 03:06] LABS: INR 0.9 (<1.2); Partial Thromboplastin Time 22.9 sec (22.0-30.0); Prothrombin Time 9.8 sec (9.0-12.0)
[2019-08-30 03:08] LABS: Albumin 4.5 g/dL (3.5-5.0); Calcium 9.6 mg/dL (8.4-10.2); Magnesium 2.2 mg/dL (1.6-2.3); Potassium 4.8 mmol/L (3.5-5.1); Total Bilirubin 0.7 mg/dL (0.2-1.3); Total Protein 7.6 g/dL (6.3-8.2)
[2019-08-30] MEDS: HEPARIN SOD,PORK IN 0.45% NACL 25,000 UNIT in 0.45% NACL 1 250ML.BAG IV SCH (03:30)
--- NOTE | 2019-08-30 03:44 | XR ---
EXAMINATION TYPE: XR chest 2V DATE OF EXAM: 08/30/2019 COMPARISON: 08/18/2019 HISTORY: Chest pain TECHNIQUE: FINDINGS: There is no heart failure nor confluent pneumonic infiltrate. Thoracic aorta is atheromatou s. There are chest leads. Costophrenic angles are clear. IMPRESSION: No active cardiopulmonary disease. No change.
[2019-08-30] MEDS: NITROGLYCERIN OINT 1 INCH/GM PACKET TOPICAL SCH ×3 (06:16→20:08)
[2019-08-30] MEDS ORDERED: NITROGLYCERIN SL TABS 0.4 MG TAB SUBLINGUAL PRN ×2 (08:50→10:38)
[2019-08-30] MEDS ORDERED: ATORVASTATIN 80 MG TAB PO STA (10:38)
[2019-08-30] MEDS ORDERED: ALPRAZolam 0.5 MG TAB PO PRN (10:38)
[2019-08-30] MEDS ORDERED: ASPIRIN 325 MG TAB PO STA (10:38)
[2019-08-30] MEDS ORDERED: SODIUM CHLORIDE 0.9% 1,000 ML in EMPTY BAG 1 BAG IV ONE (10:38)
[2019-08-30] MEDS ORDERED: ALPRAZolam 0.25 MG TAB PO PRN (10:38)
--- NOTE | 2019-08-30 10:44 | P.CRDCN ---
History of Present Illness Consult date: 08/30/19 Requesting physician: Danis Bonner Chief complaint: Chest pain History of present illness: This is a pleasant 89-year-old female who follows with Dr. Hardin in the office. She has a known history of coronary artery disease, just recently was in the hospital earlier this month underwent successful stenting of the proximal LAD as well as stenting of the proximal RCA on the of this month, she was discharged home on dual antiplatelet therapy, she had an echo performed that admission which revealed an ejection fraction of 30-35%. The patient also has history of hypothyroidism, hypertension, hyperlipidemia. She did have an appointment with Dr. Hsu yesterday in the office and overall was doing quite well. After returning home the patient did have an episode of midsternal chest discomfort, she states the symptoms reminded her of what she had when she presented to the hospital last week. The patient did take 2 nitroglycerin, subsequent to that she did have an episode of nausea and diaphoresis, no further episode of chest discomfort. Her EKG on presentation to the emergency room showed a normal sinus rhythm with T-wave abnormality noted in the anterior lateral leads, patient did have ST-T wave changes noted in the anterior lateral leads on her recent admission, this shows significant progression of the changes. Chest x-ray did not reveal any active cardiopulmonary disease. Blood pressure 145/78 with a heart rate in the 60s. Afebrile. White blood cell count 13.3, hemoglobin 15.1, platelet count 342. Sodium 140, potassium 4.8, BUN 9 creatinine 0.9. Troponins are negative 2. BNP level 3230. Patient was seen and examined in the emergency room, she is currently chest pain-free. Past Medical History Past Medical History: Coronary Artery Disease (CAD), Chest Pain / Angina, Eye Disorder, Hyperlipidemia, Hypertension, Myocardial Infarction ([place]), Osteoarthritis (OA), Thyroid Disorder Additional Past Medical History / Comment(s): "borderline glaucoma", TIA History of Any Multi-Drug Resistant Organisms: None Reported Past Surgical History: Back Surgery, Heart Catheterization With Stent, Orthopedic Surgery, Tubal Ligation Additional Past Surgical History / Comment(s): HEMORRHOIDECTOMY, DARRELL CATARACT, PAIN CLINIC PROCEDURES, RIGHT 5TH TOE SX, SINUS SURGERY, colonoscopy last year was normal. heart cath with 2 stents 08/18/19 Past Anesthesia/Blood Transfusion Reactions: No Reported Reaction Additional Past Anesthesia/Blood Transfusion Reaction / Comment(s): . Past Psychological History: No Psychological Hx Reported Smoking Status: Never smoker Past Alcohol Use History: None Reported Past Drug Use History: None Reported - Past Family History Father Family Medical History: Myocardial Infarction ([place]) Additional Family Medical History / Comment(s): Father at age 59 from a myocardial infarction and he was an alcoholic. Brother(s) Family Medical History: CVA/TIA, Myocardial Infarction ([place]) Additional Family Medical History / Comment(s): Patient had 3 brothers, one from alcoholism, other from [place]. Sister(s) Family Medical History: No Reported History Additional Family Medical History / Comment(s): Patient had 2 sisters one of them from old age at 92. Son(s) Family Medical History: No Reported History Additional Family Medical History / Comment(s): Patient has 2 sons with no major medical problems. Daughter(s) Family Medical History: No Reported History Additional Family Medical History / Comment(s): Patient has one daughter with no major medical problems. Mother Family Medical History: CVA/TIA, Hypertension Additional Family Medical History / Comment(s): Mother at age 82 from CVA. Medications and Allergies Home Medications Medication Instructions Recorded Confirmed Type Levothyroxine Sodium [Synthroid] 25 mcg PO DAILY #14 tab 11/27/15 08/30/19 Rx Timolol 0.5% Ophth Soln [Timoptic 1 drop LEFT EYE BID /02/1408/30/19 History 0.5% Ophth Soln] Multivitamins, Thera [Multivitamin 1 tab PO DAILY 08/19/19 08/30/19 History (formulary)] Aspirin 81 mg PO DAILY #30 chew 08/21/19 08/30/19 Rx Atorvastatin [Lipitor] 80 mg PO HS #30 tab 08/21/19 08/30/19 Rx Clopidogrel [Plavix] 75 mg PO DAILY #30 tab 08/21/19 08/30/19 Rx Ezetimibe [Zetia] 10 mg PO DAILY #30 tab 08/21/19 08/30/19 Rx Lisinopril [Zestril] 2.5 mg PO DAILY #30 tab 08/21/19 08/30/19 Rx Metoprolol Tartrate [Lopressor] 25 mg PO BID #60 tab 08/21/19 08/30/19 Rx Nitroglycerin Sl Tabs [Nitrostat] 0.4 mg SUBLINGUAL Q5M PRN #25 tab 08/21/19 08/30/19 Rx Spironolactone [Aldactone] 25 mg PO DAILY #30 tab 08/21/19 08/30/19 Rx Allergies Allergy/AdvReac Type Severity Reaction Status Date / Time atorvastatin AdvReac pain and Verified 08/30/19 07:34 hair loss Txrknnq-Fvu-Dcc Reductase AdvReac severe Verified 08/30/19 07:34 Inhibitor pain and hair loss Physical Exam Vitals: Vital Signs Temp Pulse Resp BP Pulse Ox 08/30/19 10:19 68 18 160/86 98 08/30/19 07:42 62 16 156/81 97 08/30/19 04:07 62 16 145/78 100 08/30/19 03:45 149/69 08/30/19 03:31 63 16 156/72 100 08/30/19 03:00 68 16 158/76 98 08/30/19 02:22 97.9 F 61 18 151/74 98 Intake and Output 08/29/19 08/30/19 08/30/19 22:59 06:59 14:59 Intake Total 49.235 Balance 49.235 Intake: Intake, IV Titration 49.235 Amount Heparin Sod,Pork in 0.45% 49.235 NaCl 25,000 unit In 0.45 % NaCl 1 250ml.bag @ 12 UNITS/KG/HR 7.294 mls/hr IV .Q24H [facility] Rx#: [id number] Other: Weight 60.781 kg PHYSICAL EXAMINATION: GENERAL: 89-year-old female in no acute distress at the time of my examination HEENT: Head is atraumatic, normocephalic. Pupils equal, round. Sclera anicteric. Conjunctiva are clear. Mucous membranes of the mouth are moist. Neck is supple. There is no elevated jugular venous pressure. No carotid bruit is heard. HEART EXAMINATION: Heart S1, S2 systolic murmur is heard . CHEST EXAMINATION: Lungs are clear to auscultation and precussion. No chest wall tenderness is noted on palpation or with deep breathing. ABDOMEN: Soft, nontender. Bowel sounds are heard. No organomegaly noted. EXTREMITIES: 2+ peripheral pulses with no evidence of peripheral edema and no calf tenderness noted. NEUROLOGIC patient is awake, alert and oriented 3 . . Results 08/30/19 02:44 08/30/19 02:44 Cardiac Enzymes 08/30/19 08/30/19 08/30/19 Range/Units 02:44 02:44 08:37 AST 25 (14-36) U/L Troponin I <0.012 <0.012 (0.000-0.034) ng/mL Coagulation 08/30/19 08/30/19 Range/Units 02:44 08:37 PT 9.8 (9.0-12.0) sec APTT 22.9 71.9 H (22.0-30.0) sec CBC 08/30/19 Range/Units 02:44 WBC 13.3 H (3.8-10.6) k/uL RBC 5.35 (3.80-5.40) m/uL Hgb 15.1 (11.4-16.0) gm/dL Hct 47.4 H (34.0-46.0) % Plt Count 342 (150-450) k/uL Comprehensive Metabolic Panel 08/30/19 Range/Units 02:44 Sodium 140 (137-145) mmol/L Potassium 4.8 (3.5-5.1) mmol/L Chloride 103 (98-107) mmol/L Carbon Dioxide 28 (22-30) mmol/L BUN 29 H (7-17) mg/dL Creatinine 0.99 (0.52-1.04) mg/dL Glucose 104 H (74-99) mg/dL Calcium 9.6 (8.4-10.2) mg/dL AST 25 (14-36) U/L ALT 15 (4-34) U/L Alkaline Phosphatase 44 (38-126) U/L Total Protein 7.6 (6.3-8.2) g/dL Albumin 4.5 (3.5-5.0) g/dL Current Medications Generic Name Dose Route Start Last Admin Trade Name Freq PRN Reason Stop Dose Admin Aspirin 81 mg 08/31/19 09:00 Aspirin PO DAILY [facility] Atorvastatin Calcium 80 mg 08/30/19 21:00 Lipitor PO HS [facility] Clopidogrel Bisulfate 75 mg 08/30/19 09:00 Plavix PO DAILY [facility] Ezetimibe 10 mg 08/30/19 09:00 Zetia PO DAILY [facility] Heparin Sodium (Porcine) 0 unit 08/30/19 02:51 Heparin IV PER PROTOCOL PRN Low PTT Protocol Sodium Chloride 1,000 mls @ 100 mls/hr 08/30/19 02:38 08/30/19 03:00 Saline 0.9% IV 08/30/19 12:37 100 mls/hr .Q10H [facility] Administration Heparin Sodium/Sodium Chloride 250 mls @ 7.294 mls/hr 08/30/19 03:00 08/30/19 10:15 25,000 unit/ Sodium Chloride IV 10 units/kg/hr .Q24H [facility] 6.078 mls/hr Titration Protocol 12 UNITS/KG/HR Levothyroxine Sodium 25 mcg 08/31/19 06:30 Synthroid PO DAILY@0630 [facility] Lisinopril 2.5 mg 08/30/19 09:00 Zestril PO DAILY [facility] Metoprolol Tartrate 25 mg 08/30/19 09:00 Lopressor PO BID [facility] Multivitamins 1 each 08/30/19 09:00 Theragran PO DAILY [facility] Nitroglycerin 1 inch 08/30/19 06:00 08/30/19 06:16 Nitro-Bid Oint TOPICAL Not Given Q6HR [facility] Nitroglycerin 0.4 mg 08/30/19 08:50 Nitrostat SUBLINGUAL Q5M PRN Chest Pain Spironolactone 25 mg 08/30/19 09:00 Aldactone PO DAILY [facility] Timolol Maleate 1 drops 08/30/19 09:00 Timoptic LEFT EYE BID [facility] Intake and Output 08/29/19 08/30/19 08/30/19 22:59 06:59 14:59 Intake Total 49.235 Balance 49.235 Intake: Intake, IV Titration 49.235 Amount Heparin Sod,Pork in 0.45% 49.235 NaCl 25,000 unit In 0.45 % NaCl 1 250ml.bag @ 12 UNITS/KG/HR 7.294 mls/hr IV .Q24H [facility] Rx#: [id number] Other: Weight 60.781 kg 08/30/19 02:44 08/30/19 02:44 EKG Interpretations (text) EKG shows a normal sinus rhythm with ST-T wave changes, T wave inversion in the anterior lateral leads Assessment and Plan Plan: Assessment and plan #1 chest pain in a patient with recent PCI, troponins negative 3. EKG shows normal sinus rhythm with ST-T wave changes in the anterior lateral leads, prog ressed from admission #2 recent angioplasty and stenting of the LAD and RCA approximately a week ago, patient at that time with a non-STEMI #3 ischemic cardiomyopathy with documented ejection fraction of 30-35%, mild to moderate mitral regurgitation #4 hypertension #5 hyperlipidemia #6 hypothyroidism Plan Patient has been recommended to undergo cardiac catheterization, the risks and the benefits again were explained to her in detail, this will be performed today by Dr. Hardin. We will also repeat a limited echocardiogram with Doppler study to assess the patient's LV function. Continue aspirin 81 mg daily, Plavix 75 mg daily, Lipitor 80 mg daily, IV heparin, Zestril 2.5 mg daily and metoprolol 25 mg twice a day. DNP note has been reviewed, I agree with a documented findings and plan of care. Patient was seen and examined.
[2019-08-30] MEDS: MULTIVITAMINS, THERA 1 EACH TAB PO SCH (11:00)
[2019-08-30] MEDS: SPIRONOLACTONE 25 MG TAB PO SCH (11:08)
[2019-08-30] MEDS: CLOPIDOGREL 75 MG TAB PO SCH (11:08)
[2019-08-30] MEDS: METOPROLOL TARTRATE 25 MG TAB PO SCH (11:08)
[2019-08-30] MEDS: LISINOPRIL 2.5 MG TAB PO SCH (11:08)
[2019-08-30] MEDS: ASPIRIN 81 MG PO SCH (11:08)
--- NOTE | 2019-08-30 12:55 | ECHOF ---
Referral Reason:limited, assess lvf MEASUREMENTS -------- HEIGHT: 160.0 cm WEIGHT: 60.8 kg BP: FINDINGS -------- Sinus rhythm. Echo Done 08/21: Limited study for LV Function. Overall left ventricular systolic function is moderate-severely impaired with, an EF between 30 - 35 %. Anterseptal Hypokinesis Lateral hypokinesis [place] Hypokinesis. There is mild aortic regurgitation. Mild mitral regurgitation is present. CONCLUSIONS -------- 1. Sinus rhythm. 2. Echo Done 08/21: Limited study for LV Function. 3. Overall left ventricular systolic function is moderate-severely impaired with, an EF between 30 - 35 %. 4. Anterseptal Hypokinesis 5. Lateral hypokinesis 6. [place] Hypokinesis. 7. There is mild aortic regurgitation. 8. Mild mitral regurgitation is present. LABORATORY ASSOCIATE: Yvonne Mcghee RDCS
--- NOTE | 2019-08-30 14:43 | P.HPIM ---
History of Present Illness H&P Date: 08/30/19 Chief Complaint: chest discomfort This is an 89-year-old female patient of Dr. Helms with past medical history of hypertension, hyperlipidemia, hypothyroidism, glaucoma, generalized osteoarthritis. Patient had a recent hospitalization after she initially presented to [facility] with chest pain midsternal to the left. She had elevated troponins and EKG showed nonspecific ST and T-wave abnormalities. Patient was ruled in for non-ST elevated myocardial infarction and transferred to [facility] and underwent heart cath and found to have critical disease involving the proximal LAD, severe disease in the proximal RCA and underwent successful stenting of both the LAD and RCA. Patient was discharged home on August 27. Patient states that around 12:30 she developed chest pain was very similar to her previous chest pain. She took 3 nitroglycerin sublingually over 20 minutes and then developed sweating and nausea without vomiting and then suddenly she felt better. Chest pain was relieved. Patient states that she went shopping and to [place] yesterday and did not feel that she exerted herself. Patient came into [facility] emergency center for evaluation. She was afebrile, heart rate 61, blood pressure 151/74, pulse ox 98% on room air. EKG was concerning for ischemia and she was started on Nitrol paste and heparin drip to be admitted to the cardiac stepdown unit and cardiology consult, so is currently scheduled for heart catheterization... Review of Systems Constitutional: Denies chills, Denies fatigue, Denies fever, Denies poor appetite, Denies weakness Eyes: denies blurred vision, denies pain Ears, nose, mouth and throat: Denies headache, Denies sore throat Cardiovascular: Reports chest pain-resolved, Denies dyspnea on exertion, Denies leg edema, Denies shortness of breath, Denies syncope Respiratory: Denies cough, Denies cough with sputum, Denies dyspnea, Denies excessive sputum, Denies hemoptysis, Denies home oxygen, Denies respiratory infections Gastrointestinal: Denies abdominal pain, Denies diarrhea, Denies loss of appetite, Denies nausea, Denies vomiting Genitourinary: Denies dysuria, Denies hematuria, Denies urgency, Denies urinary frequency Musculoskeletal: Denies muscle weakness, Denies myalgias Integumentary: Denies pruritus, Denies rash, Denies wounds Neurological: Denies change in mentation, Denies change in speech, Denies numbness, Denies weakness Psychiatric: Denies anxiety, Denies depression Endocrine: Denies fatigue, Denies weight change Past Medical History Past Medical History: Coronary Artery Disease (CAD), Chest Pain / Angina, Eye Disorder, Hyperlipidemia, Hypertension, Myocardial Infarction (DC), Osteoarthritis (OA), Thyroid Disorder Additional Past Medical History / Comment(s): "borderline glaucoma", TIA History of Any Multi-Drug Resistant Organisms: None Reported Past Surgical History: Back Surgery, Heart Catheterization With Stent, Orthopedic Surgery, Tubal Ligation Additional Past Surgical History / Comment(s): HEMORRHOIDECTOMY, DARRELL CATARACT, PAIN CLINIC PROCEDURES, RIGHT 5TH TOE SX, SINUS SURGERY, colonoscopy last year was normal. heart cath with 2 stents 08/18/19 Past Anesthesia/Blood Transfusion Reactions: No Reported Reaction Additional Past Anesthesia/Blood Transfusion Reaction / Comment(s): . Past Psychological History: No Psychological Hx Reported Smoking Status: Never smoker Past Alcohol Use History: None Reported Past Drug Use History: None Reported - Past Family History Father Family Medical History: Myocardial Infarction (DC) Additional Family Medical History / Comment(s): Father at age 59 from a myocardial infarction and he was an alcoholic. Brother(s) Family Medical History: CVA/TIA, Myocardial Infarction (DC) Additional Family Medical History / Comment(s): Patient had 3 brothers, one from alcoholism, other from DC. Sister(s) Family Medical History: No Reported History Additional Family Medical History / Comment(s): Patient had 2 sisters one of them from old age at 92. Son(s) Family Medical History: No Reported History Additional Family Medical History / Comment(s): Patient has 2 sons with no major medical problems. Daughter(s) Family Medical History: No Reported History Additional Family Medical History / Comment(s): Patient has one daughter with no major medical problems. Mother Family Medical History: CVA/TIA, Hypertension Additional Family Medical History / Comment(s): Mother at age 82 from CVA. Medications and Allergies Home Medications Medication Instructions Recorded Confirmed Type Levothyroxine Sodium [Synthroid] 25 mcg PO DAILY #14 tab 11/26/16 08/30/19 Rx Timolol 0.5% Ophth Soln [Timoptic 1 drop LEFT EYE BID 01/07/16 08/30/19 History 0.5% Ophth Soln] Multivitamins, Thera [Multivitamin 1 tab PO DAILY 08/19/19 08/30/19 History (formulary)] Aspirin 81 mg PO DAILY #30 chew 08/21/19 08/30/19 Rx Atorvastatin [Lipitor] 80 mg PO HS #30 tab 08/21/19 08/30/19 Rx Clopidogrel [Plavix] 75 mg PO DAILY #30 tab 08/21/19 08/30/19 Rx Ezetimibe [Zetia] 10 mg PO DAILY #30 tab 08/21/19 08/30/19 Rx Lisinopril [Zestril] 2.5 mg PO DAILY #30 tab 08/21/19 08/30/19 Rx Metoprolol Tartrate [Lopressor] 25 mg PO BID #60 tab 08/21/19 08/30/19 Rx Nitroglycerin Sl Tabs [Nitrostat] 0.4 mg SUBLINGUAL Q5M PRN #25 tab 08/21/19 08/30/19 Rx Spironolactone [Aldactone] 25 mg PO DAILY #30 tab 08/21/19 08/30/19 Rx Allergies Allergy/AdvReac Type Severity Reaction Status Date / Time atorvastatin AdvReac pain and Verified 08/30/19 07:34 hair loss [id number]-Fjk-Qqx Reductase AdvReac severe Verified 08/30/19 07:34 Inhibitor pain and hair loss Physical Exam Vitals: Vital Signs Temp Pulse Resp BP Pulse Ox 08/30/19 07:42 62 16 156/81 97 08/30/19 04:07 62 16 145/78 100 08/30/19 03:45 149/69 08/30/19 03:31 63 16 156/72 100 08/30/19 03:00 68 16 158/76 98 08/30/19 02:22 97.9 F 61 18 151/74 98 Intake and Output 08/29/19 08/30/19 08/30/19 22:59 06:59 14:59 Other: Weight 60.781 kg - Constitutional General appearance: average body habitus, no acute distress - EENT Eyes: Reports anicteric sclerae, Reports disc margins sharp, Reports PERRLA, Reports fundus normal, Reports normal apperance, Denies ptosis, Denies scleral icterus ENT: Reports hard of hearing, Reports normal oropharynx, Denies thrush Ears: bilateral: normal - Neck Neck: Reports normal ROM, Denies lymphadenopathy, Denies rigidity, Denies stridor, Denies thyromegaly Carotids: bilateral: upstroke normal Thyroid: bilateral: normal size - Respiratory Respiratory: bilateral: diminished, negative: dullness, rales, rhonchi, wheezing, prolonged expiration, prolonged inspiration - Cardiovascular Rhythm: regular Heart sounds: normal: S1, S2 Abnormal Heart Sounds: Reports systolic murmur - Gastrointestinal General gastrointestinal: Reports normal bowel sounds, Reports soft, Reports splenomegaly, Denies tenderness, Denies umbilical hernia - Integumentary Integumentary: Denies cyanotic, Denies decreased turgor, Denies jaundiced, Denies rash - Neurologic Neurologic: CNII-XII intact - Psychiatric Psychiatric: Reports A&O x's 3, Reports appropriate affect Results CBC & Chem 7: 08/30/19 02:44 08/30/19 02:44 Labs: Abnormal Lab Results - Last 24 Hours (Table) 08/30/19 08/30/19 Range/Units 02:44 02:44 WBC 13.3 H (3.8-10.6) k/uL Hct 47.4 H (34.0-46.0) % Neutrophils # 9.3 H (1.3-7.7) k/uL BUN 29 H (7-17) mg/dL Glucose 104 H (74-99) mg/dL Thrombosis Risk Factor Assmnt - DVT/VTE Prophylaxis DVT/VTE Prophylaxis: Pharmacologic Prophylaxis ordered Assessment and Plan Plan: 1. Chest pain with EKG changes. Cardiology consult with plan for heart catheterization. Continue aspirin 81 mg daily, Plavix 75 mg daily, Lipitor 80 mg daily, IV heparin, Lopressor. 2. Recent hospitalization for acute non-ST elevated myocardial infarction status post heart catheterization and stenting of the proximal LAD and proximal RCA. Continue as in #1. 3. Ischemic cardiomyopathy with EF of 30-35%, mild to moderate mitral regurgitation. 4. Hypertension and hypertensive cardiovascular disease. Continue lisinopril 2.5 mg daily, Lopressor 25 mg twice daily, Aldactone 25 mg daily. 3. ALLERGIC rhinitis, stable. 4. Hypothyroidism. Continue Synthroid 25 g orally once every day. 5. Hyperlipidemia. Continue Lipitor. 6. Osteoarthritis, generalized. Clinically stable. 7. History of TIA. Resolved. Discharge plan: Home Patient admitted to the hospital for a minimum of 2 night stay. Impression and plan of care have been directed as dictated by the signing physician. Monica Greenwood nurse practitioner acting as scribe for signing physician.
[2019-08-30] MEDS: TIMOLOL 0.5% OPHTH DROPS 5 ML BTL LEFT EYE SCH (15:17)
[2019-08-30] MEDS: EZETIMIBE 10 MG TAB PO SCH (15:18)
[2019-08-30] MEDS ORDERED: LIDOCAINE 1% INJ 10MG/ML (20 ML MDV) SQ ONE (18:54)
[2019-08-30] MEDS ORDERED: MIDAZOLAM 2 MG/2 ML VIAL IVP ONE (18:54)
[2019-08-30] MEDS ORDERED: IV FLUID CONTINUATION 950 ML IV ONE (19:00)
[2019-08-30] MEDS ORDERED: IOPAMIDOL-370 125ML BTL INJ ONE (19:05)
[2019-08-30] MEDS ORDERED: RX INFO: IV CONTRAST WAS GIVEN 1 EACH MISC MISCELLANE PRN (19:10)
[2019-08-30] MEDS ORDERED: SODIUM CHLORIDE 0.9% 1,000 ML IV SCH (19:15)
[2019-08-30 20:34] LABS: Glucose,Whole Blood 72 mg/dL (75-99)
[2019-08-30] MEDS ORDERED: ATORVASTATIN 80 MG TAB PO SCH (21:00)
--- NOTE | 2019-08-30 21:01 | CC ---
CARDIAC CATHETERIZATION REPORT DATE OF PROCEDURE: 08/30/2019 PERFORMING PHYSICIAN: Fransisco Hsu MD. PROCEDURES PERFORMED: 1. Selective right and left coronary angiogram. 2. Left heart catheterization. INDICATION: This is an 89-year-old female patient who presented few weeks ago to [facility] with chest discomfort and was ruled in for acute [id number] myocardial infarction. At that point she underwent a heart catheterization which revealed critical LAD and critical RCA disease. She underwent successful percutaneous coronary intervention of both the LAD and RCA with excellent angiographic results and without any complication. She presented this time to the emergency room with chest discomfort associated with dynamic EKG changes concerning for angina. Because of that, a heart catheterization was advised. APPROACH: Right common femoral artery. COMPLICATIONS: None. LEVEL OF SEDATION: Moderate, with sedation length of 17 minutes. PROCEDURE DESCRIPTION: After obtaining informed consent, the patient was brought to the cardiac bean sprout laborer. The right common femoral artery was cannulated using micropuncture technique. The micropuncture wire passed easily. Then I placed a 6-Danish sheath in the right common femoral artery. After that I did selective right and left coronary angiogram with JR4 and JL3.5 catheters. Left heart catheterization was performed using a pigtail catheter. The procedure was completed without any complication. SELECTIVE CORONARY ANGIOGRAM: 1. The right coronary artery is a large-caliber vessel and it is a dominant vessel. The RCA in the proximal portion appeared to be normal. In the mid portion it is stented and the stent is patent. Distal to the stent there is an area of disease that appeared to be in the range of 40% to 50%. The RCA distally appeared to be angiographically normal. 2. The left main is angiographically normal. It bifurcates into LCX and LAD. 3. The LCX is a large-caliber vessel. It is a nondominant vessel. The left circumflex is angiographically normal. In the mid portion it gives rise to an OM branch which appeared to be angiographically normal. 4. The LAD. The proximal LAD appeared to be stented and the stent is patent. The stent is across a medium-sized diagonal branch, but there is excellent flow in the diagonal. The LAD in the mid and distal portions appeared to be angiographically normal. The LAD after the first diagonal branch gives rise to multiple small diagonal branches that appeared to be angiographically normal. HEMODYNAMICS: The left ventricular end-diastolic pressure was 8 to 12 mmHg without significant gradient across the aortic valve. CONCLUSION: 1. Patent stent in the mid RCA. Intermediate disease involving the mid RCA distal to the stented segment. 2. Patent stent in the proximal LAD. 3. No disease involving the left circumflex coronary artery. POST-PROCEDURE MANAGEMENT: 1. Maximize medical treatment. 2. Consider oral nitrate. 3. Follow up with the patient. MMODL / IJN: [id number] /
[2019-08-30] MEDS ORDERED: MELATONIN 3 MG TABLET PO PRN (23:42)
[2019-08-31] MEDS: METOPROLOL TARTRATE 25 MG TAB PO SCH ×2 (00:09→09:23)
[2019-08-31] MEDS: TIMOLOL 0.5% OPHTH DROPS 5 ML BTL LEFT EYE SCH ×2 (00:09→09:23)
[2019-08-31] MEDS: NITROGLYCERIN OINT 1 INCH/GM PACKET TOPICAL SCH ×2 (02:25→06:39)
[2019-08-31] MEDS: HEPARIN SOD,PORK IN 0.45% NACL 25,000 UNIT in 0.45% NACL 1 250ML.BAG IV SCH (04:29)
[2019-08-31] MEDS ORDERED: LEVOTHYROXINE 25 MCG TAB PO SCH (06:30)
[2019-08-31 07:12] LABS: Basophils # (A) 0.1 k/uL (0-0.2); Basophils % (A) 1 %; Eosinophils # (A) 0.2 k/uL (0-0.7); Eosinophils % (A) 2 %; HCT 40.6 % (34.0-46.0); HGB 12.7 gm/dL (11.4-16.0); Lymphocytes # (A) 1.6 k/uL (1.0-4.8); Lymphocytes % (A) 16 %; MCH 28.4 pg (25.0-35.0); MCHC 31.4 g/dL (31.0-37.0); MCV 90.5 fL (80.0-100.0); Mean Platelet Volume 7.5; Monocytes # (A) 0.6 k/uL (0-1.0); Monocytes % (A) 6 %; Neutrophils # (A) 7.6 k/uL (1.3-7.7); Neutrophils % (A) 74 %; Platelet Count 209 k/uL (150-450); RBC 4.48 m/uL (3.80-5.40); RDW 13.7 % (11.5-15.5); WBC 10.2 k/uL (3.8-10.6)
[2019-08-31 07:19] LABS: Cholesterol 84 mg/dL (<200); HDL Cholesterol 40 mg/dL (40-60); LDL Cholesterol,Calculated 32 mg/dL (0-99); Triglycerides 58 mg/dL (<150)
[2019-08-31] MEDS ORDERED: ASPIRIN 325 MG TAB PO SCH (09:00)
[2019-08-31] MEDS: LISINOPRIL 2.5 MG TAB PO SCH (09:23)
[2019-08-31] MEDS: CLOPIDOGREL 75 MG TAB PO SCH (09:23)
[2019-08-31] MEDS: EZETIMIBE 10 MG TAB PO SCH (09:23)
[2019-08-31] MEDS: ASPIRIN 81 MG PO SCH (09:23)
[2019-08-31] MEDS: SPIRONOLACTONE 25 MG TAB PO SCH (09:23)
[2019-08-31] MEDS: MULTIVITAMINS, THERA 1 EACH TAB PO SCH (09:23)
[2019-08-31 09:29] VITALS: BP 108/54; PULSE 62; RESP 16; TEMP 97.2
--- NOTE | 2019-08-31 10:40 | P.PN ---
Subjective Progress Note Date: 08/31/19 This is a pleasant 89-year-old female who follows with Dr. Hardin in the office. She has a known history of coronary artery disease, just recently was in the hospital earlier this month underwent successful stenting of the proximal LAD as well as stenting of the proximal RCA on the 18 of this month, she was discharged home on dual antiplatelet therapy, she had an echo performed that admission which revealed an ejection fraction of 30-35%. The patient also has history of hypothyroidism, hypertension, hyperlipidemia. She did have an appointment with Dr. Hsu yesterday in the office and overall was doing quite well. After returning home the patient did have an episode of midsternal chest discomfort, she states the symptoms reminded her of what she had when she presented to the hospital last week. The patient did take 2 nitroglycerin, subsequent to that she did have an episode of nausea and diaphoresis, no further episode of chest discomfort. Her EKG on presentation to the emergency room showed a normal sinus rhythm with T-wave abnormality noted in the anterior lateral leads, patient did have ST-T wave changes noted in the anterior lateral leads on her recent admission, this shows significant progression of the changes. Chest x-ray did not reveal any active cardiopulmonary disease. Blood pressure 145/78 with a heart rate in the 60s. Afebrile. White blood cell count 13.3, hemoglobin 15.1, platelet count 342. Sodium 140, potassium 4.8, BUN 9 creatinine 0.9. Troponins are negative 2. BNP level 3230. Patient was seen and examined in the emergency room, she is currently chest pain-free. 08/31/2019 Patient was taken to the cardiac catheterization lab yesterday, cardiac catheterization revealed a patent stent in the mid RCA. Intermediate disease involving the mid RCA distal to the stented segment. Patent stent in the proximal LAD. No disease in the left circumflex artery. A limited echocardiogram with Doppler study was also performed which revealed an ejection fraction of 30-35%. Patient was seen and examined this morning, she feels well, denies any chest pain or difficulty in breathing. Up ambulating without any difficulty. Blood pressure 108/54, heart rate in the 60s, 98% on room air. Objective - Vital Signs Vital signs: Vital Signs Temp 97.2 F L 08/31/19 08:00 Pulse 62 08/31/19 08:00 Resp 16 08/31/19 08:00 BP 108/54 08/31/19 08:00 Pulse Ox 98 08/31/19 08:00 Intake & Output 08/30/19 08/31/19 08/31/19 18:59 06:59 18:59 Intake Total 49.235 640 120 Balance 49.235 640 120 Weight 61.6 kg Intake: IV 100 Intake, IV Titration 49.235 Amount Heparin Sod,Pork in 0.45% 49.235 NaCl 25,000 unit In 0.45 % NaCl 1 250ml.bag @ 12 UNITS/KG/HR 7.294 mls/hr IV .Q24H COLIN Rx#: [id number] Oral 540 120 Other: # Voids 1 - Exam PHYSICAL EXAMINATION: GENERAL: 89-year-old female in no acute distress at the time of my e xamination HEENT: Head is atraumatic, normocephalic. Pupils equal, round. Sclera anicteric. Conjunctiva are clear. Mucous membranes of the mouth are moist. Neck is supple. There is no elevated jugular venous pressure. No carotid bruit is heard. HEART EXAMINATION: Heart S1, S2 systolic murmur is heard . CHEST EXAMINATION: Lungs are clear to auscultation and precussion. No chest wall tenderness is noted on palpation or with deep breathing. ABDOMEN: Soft, nontender. Bowel sounds are heard. No organomegaly noted. EXTREMITIES: 2+ peripheral pulses with no evidence of peripheral edema and no calf tenderness noted. Right groin soft, no evidence of any hematoma. NEUROLOGIC patient is awake, alert and oriented 3 . - Labs CBC & Chem 7: 08/31/19 06:44 08/30/19 02:44 Labs: Abnormal Lab Results - Last 24 Hours (Table) 08/30/19 Range/Units 20:33 POC Glucose (mg/dL) 72 L (75-99) mg/dL Assessment and Plan Plan: Assessment and plan #1 chest pain in a patient with recent PCI, troponins negative 3. EKG shows normal sinus rhythm with ST-T wave changes in the anterior lateral leads, progressed from admission #2 recent angioplasty and stenting of the LAD and RCA approximately a week ago, patient at that time with a non-STEMI #3 ischemic cardiomyopathy with documented ejection fraction of 30-35%, mild to moderate mitral regurgitation #4 hypertension #5 hyperlipidemia #6 hypothyroidism Plan Patient underwent a cardiac catheterization yesterday which revealed a patent stent in the RCA, intermediate disease involving the mid RCA distal to the stented segment. Patent stent in the proximal LAD, no disease involving the circumflex, medical therapy advised. The patient may be discharged home today from our perspective, a follow-up appointment will be made with Dr. Hardin in the office in one week. Continue current medications. We will also add a small dose of Imdur to the patient's medication regime. DNP note has been reviewed, I agree with a documented findings and plan of care. Patient was seen and examined.
[2019-08-31] MEDS ORDERED: ISOSORBIDE MONONITRATE ER 30 MG TAB.ER.24H PO SCH (10:45)
--- NOTE | 2019-08-31 15:51 | P.DS ---
Providers Date of admission: 08/30/19 05:48 Expected date of discharge: 08/31/19 Attending physician: Danis Bonner Consults: 08/30/19 03:53 Consult Physician Urgent Consulting Provider: Xavi Mora Consult Reason/Comments: chest pain s/p stenting, EKG changes Do you want consulting provider notified?: Already Contacted Primary care physician: Radha Helms [facility] Course: This is an 89-year-old female patient of Dr. Helms with past medical history of hypertension, hyperlipidemia, hypothyroidism, glaucoma, generalized osteoarthritis. Patient had a recent hospitalization after she initially presented to [facility] with chest pain midsternal to the left. She had elevated troponins and EKG showed nonspecific ST and T-wave abnormalities. Patient was ruled in for non-ST elevated myocardial infarction and transferred to [facility] and underwent heart cath and found to have critical disease involving the proximal LAD, severe disease in the proximal RCA and underwent successful stenting of both the LAD and RCA. Patient was discharged home on August 27. Patient states that around 12:30 she developed chest pain was very similar to her previous chest pain. She took 3 nitroglycerin sublingually over 20 minutes and then developed sweating and nausea without vomiting and then suddenly she felt better. Chest pain was reli eved. Patient states that she went shopping and to [place] yesterday and did not feel that she exerted herself. Patient came into [facility] emergency center for evaluation. She was afebrile, heart rate 61, blood pressure 151/74, pulse ox 98% on room air. EKG was concerning for ischemia and she was started on Nitrol paste and heparin drip to be admitted to the cardiac stepdown unit and cardiology consult, so is currently scheduled for heart catheterization. 08/31: Yesterday, patient underwent heart catheterization that revealed a patent stent in the mid RCA. Intermediate disease involving the mid RCA distal to the stented segment. Patent stent in the proximal LAD. No disease involving the left circumflex. Recommendations for maximizing medical treatment, consider oral nitrate. Imdur was added by cardiology and patient cleared for discharge. Patient discharged home in stable condition Discharge diagnoses: 1. Chest pain with EKG changes. Acute coronary syndrome ruled out. 2. Recent hospitalization for acute non-ST elevated myocardial infarction status post heart catheterization and stenting of the proximal LAD and proximal RCA. 3. Ischemic cardiomyopathy with EF of 30-35%, mild to moderate mitral regurgitation. 4. Hypertension and hypertensive cardiovascular disease. 3. ALLERGIC rhinitis, stable. 4. Hypothyroidism. 5. Hyperlipidemia. 6. Osteoarthritis, generalized. 7. History of TIA. Resolved. Discharge plan: Home Impression and plan of care have been directed as dictated by the signing physician. Monica Greenwood nurse practitioner acting as scribe for signing physician. Patient Condition at Discharge: Stable Plan - Discharge Summary Discharge Rx Participant: No New Discharge Prescriptions: New Isosorbide Mononitrate ER [Imdur] 30 mg PO DAILY #30 tab.er.24h Continue Levothyroxine Sodium [Synthroid] 25 mcg PO DAILY #14 tab Timolol 0.5% Ophth Soln [Timoptic 0.5% Ophth Soln] 1 drop LEFT EYE BID Multivitamins, Thera [Multivitamin (formulary)] 1 tab PO DAILY Spironolactone [Aldactone] 25 mg PO DAILY #30 tab Aspirin 81 mg PO DAILY #30 chew Atorvastatin [Lipitor] 80 mg PO HS #30 tab Metoprolol Tartrate [Lopressor] 25 mg PO BID #60 tab Nitroglycerin Sl Tabs [Nitrostat] 0.4 mg SUBLINGUAL Q5M PRN #25 tab PRN Reason: Chest Pain Clopidogrel [Plavix] 75 mg PO DAILY #30 tab Lisinopril [Zestril] 2.5 mg PO DAILY #30 tab Ezetimibe [Zetia] 10 mg PO DAILY #30 tab Discharge Medication List Levothyroxine Sodium [Synthroid] 25 mcg PO DAILY #14 tab 11/27/15 [Rx] Timolol 0.5% Ophth Soln [Timoptic 0.5% Ophth Soln] 1 drop LEFT EYE BID 01/07/16 [History] Multivitamins, Thera [Multivitamin (formulary)] 1 tab PO DAILY 08/19/19 [History] Aspirin 81 mg PO DAILY #30 chew 08/21/19 [Rx] Atorvastatin [Lipitor] 80 mg PO HS #30 tab 08/21/19 [Rx] Clopidogrel [Plavix] 75 mg PO DAILY #30 tab 08/21/19 [Rx] Ezetimibe [Zetia] 10 mg PO DAILY #30 tab 08/21/19 [Rx] Lisinopril [Zestril] 2.5 mg PO DAILY #30 tab 08/21/19 [Rx] Metoprolol Tartrate [Lopressor] 25 mg PO BID #60 tab 08/21/19 [Rx] Nitroglycerin Sl Tabs [Nitrostat] 0.4 mg SUBLINGUAL Q5M PRN #25 tab 08/21/19 [Rx] Spironolactone [Aldactone] 25 mg PO DAILY #30 tab 08/21/19 [Rx] Isosorbide Mononitrate ER [Imdur] 30 mg PO DAILY #30 tab.er.24h 08/31/19 [Rx] Follow up Appointment(s)/Referral(s): Radha Helms MD [Primary Care Provider] - 1 Week (Office will call with follow up appointment. ) Fransisco Hsu MD [STAFF PHYSICIAN] - 09/08/19 1:30 pm Ambulatory/Diagnostic Orders: Basic Metabolic Panel [LAB.AMB] Location: None Selected Patient Instructions/Handouts: *Surgery [facility] - After Heart Catheterization - Clothing Manager Instructions, Heart Healthy Diet (DC) Activity/Diet/Wound Care/Special Instructions: Cardiac catheterization precautions: 1. Support your puncture site by applying firm, steady pressure whenever you cough, laugh, sneeze or bear down to have a bowel movement (2-day restriction). 2. Watch for any excessive bruising, active bleeding, a firm knot forming under your skin, extreme tenderness and signs of infection (redness, swelling, fever). 3. Shower daily, do not soak puncture in a tub bath, jacuzzi, pool, small etc. for 1 week. This is to prevent risk of infection. 4. Drink plenty of fluids the day of and day after your procedure to flush contrast dye out of your kidneys. 5. Take all medications as directed. Never stop any new medication without your physicians OK. 6. No driving for 2 days after procedure. 7. 10- pound weight lifting restriction for 1 week. 8. Low sodium/low fat diet. 9. Activity limited until follow up appointment with your package reinspector. In case of any problems, please call [facility], Kevin Pagan @ [phone]. Discharge Disposition: HOME SELF-CARE
== END 2019-08-31 10:44 | disposition home or self-care (01) | DRG 281 ==
LOC: EC 02:16 → 3SCARD 05:48
PROVIDERS: ADMIT Internal Medicine Geriatric Medicine; ATTEND Internal Medicine Geriatric Medicine
PROC: B2111ZZ Fluoroscopy of Multiple Coronary Arteries using Low Osmolar Contrast (ICD-10-PCS; principal; 2019-08-30 11:40)
PROC: 4A023N7 Measurement of Cardiac Sampling and Pressure, Left Heart, Percutaneous Approach (ICD-10-PCS; principal; 2019-08-30 11:40)
DX: R07.9 Chest pain, unspecified (principal); I21.4 Non-ST elevation (NSTEMI) myocardial infarction; I25.110 Atherosclerotic heart disease of native coronary artery with unstable angina pectoris; E03.9 Hypothyroidism, unspecified; E78.5 Hyperlipidemia, unspecified; I11.9 Hypertensive heart disease without heart failure; I25.2 Old myocardial infarction; I25.5 Ischemic cardiomyopathy; I34.0 Nonrheumatic mitral (valve) insufficiency; J30.9 Allergic rhinitis, unspecified; M15.9 Polyosteoarthritis, unspecified; Z79.02 Long term (current) use of antithrombotics/antiplatelets; Z79.82 Long term (current) use of aspirin; Z79.890 Hormone replacement therapy; Z79.899 Other long term (current) drug therapy; Z82.3 Family history of stroke; Z82.49 Family history of ischemic heart disease and other diseases of the circulatory system; Z86.73 Personal history of transient ischemic attack (TIA), and cerebral infarction without residual deficits; Z95.5 Presence of coronary angioplasty implant and graft; Z98.42 Cataract extraction status, left eye; Z98.41 Cataract extraction status, right eye; H40.9 Unspecified glaucoma; Z88.8 Allergy status to other drugs, medicaments and biological substances; Z81.1 Family history of alcohol abuse and dependence; Z98.51 Tubal ligation status
CPT/HCPCS: 36415; 71046; 80053; 80061; 83735; 83880; 84484; 85025; 85610; 85730; 93005; 93308; 93458; 96365; 96366; 96375; 96376; 99291

== ENCOUNTER → 2020-07-09 | Outpatient (CLI) | payer MEDICARE, BC ==
--- NOTE | 2020-07-09 16:13 | US ---
EXAMINATION TYPE: US kidneys/renal and bladder DATE OF EXAM: 07/09/2020 COMPARISON: US CLINICAL HISTORY: N18.3 chronic kidney disease. EXAM MEASUREMENTS: Right Kidney: 8.9 x 4.5 x 4.7 cm Left Kidney: 10.0 x 4.5 x 4.6 cm Post Void Residual Volume: 14.5 mL Right Kidney: moderate hydronephrosis Left Kidney: cyst measures 1.5 x 1.5 x 1.5 cm, moderate hydronephrosis Bladder: wnl Bilateral Jets seen: Yes Normal Post Void Residual: Yes IMPRESSION: 1. Moderate right hydronephrosis. An obstructing etiology is not identified by ultrasound 2. Simple left renal cyst
== END | disposition home or self-care (01) ==
LOC: RADUSWWP 15:37
PROVIDERS: ATTEND Internal Medicine
DX: N28.1 Cyst of kidney, acquired (principal); N13.30 Unspecified hydronephrosis; N18.30 Chronic kidney disease, stage 3 unspecified
CPT/HCPCS: 76770

== ENCOUNTER → 2020-07-18 | Outpatient (CLI) | payer MEDICARE, BC ==
--- NOTE | 2020-07-18 12:54 | CT ---
EXAMINATION TYPE: CT abdomen pelvis wo con DATE OF EXAM: 07/18/2020 COMPARISON: 01/09/2019 CT abdomen pelvis, 07/09/2020 ultrasound INDICATION: abn US, hydronephrosis DLP: 319 mGycm, Automated exposure control for dose reduction was used. CONTRAST: 0 mL of Isovue 300. Study performed without Oral Contrast TECHNIQUE: Axial images were obtained from above the diaphragm to the pubic rami in the axial plane a t 5 mm thick sections. Reconstructed images are reviewed on the computer in the coronal plane. FINDINGS: Limited CT sections are obtained the lung bases. There may be a 0.5 cm nodule in the posterior right lung base. Mild infiltrates are present within the lung bases right worse so than left within the de pendent portions. Some calcification is within the anterior right pleural margin dense coronary arter y calcification is present.. CT ABDOMEN: Liver: Normal Spleen: Normal Pancreas: Atrophic Adrenal glands: The adrenal glands are normal. Gallbladder: Normal Kidneys: No masses are evident. There appears to be some moderate left hydronephrosis. This appearanc e is complicated by bilateral peripelvic cysts. No hydroureter is evident. No renal stones are eviden t. Aorta: Vascular calcification is within the aorta. Inferior vena cava: Normal. CT PELVIS: Loops of bowel within the abdomen and pelvis are normal. Study is without oral contrast limiting bowel evaluation. Appendix: Not identified. No suspicious dilated tubular structures or inflammatory changes are eviden t. Urinary bladder: Normal. Genitourinary structures: Uterus contains a calcified fibroid. But is otherwise unremarkable. Adnexal regions are normal. Osseous structures: No suspicious lytic or sclerotic lesions. IMPRESSIONS: 1. Mild Left hydronephrosis. This correlates with the recent ultrasound findings. Etiology is not id entified. The appearance however is somewhat accentuated by peripelvic cysts.
== END | disposition home or self-care (01) ==
LOC: RADCTMAIN 10:04
PROVIDERS: ATTEND Internal Medicine
DX: N13.30 Unspecified hydronephrosis (principal); N28.1 Cyst of kidney, acquired
CPT/HCPCS: 74176; 82565; 84520